=== PATIENT | male | born 1960 | race African-American/Black ===

== ENCOUNTER 2017-02-21 07:46 | Emergency (ER) | payer MEDICAID ==
[~2017-02-21] VITALS: Ht 177.8 cm; Wt 138.0 kg
[~2017-02-21 07:46] MED LIST: ALPR1TAB2 PO; BENA20TA3 PO; BUDE6HFA INH; CARI350T PO; HYDR2TAB4 PO; INSU100C3 SQ; LEVVL SQ; MORP30TA54 PO; OMEP20CA10 PO; OXYB5TAB11 PO; PHEN473S12 PO; SILV20CR15 TP; TRAM50TA73 PO; ZOLP5TAB8 PO
[2017-02-21] MEDS ORDERED: LIDOCAINE HCL 1% 20ML VIAL (Pyxis) INJ MC ONE (12:15)
[2017-02-21] MEDS ORDERED: KETOROLAC 60MG/2ML VIAL IM ONE (12:15)
[2017-02-21] MEDS ORDERED: CEFTRIAXONE SODIUM 1 G/VIAL IM ONE (12:15)
[2017-02-21 13:18] LABS: BASOPHILS % 0.8 % (0.0-2.0); EOSINOPHILS % 6.6 % (0.0-5.0); HEMATOCRIT. 44.8 % (42.0-52.0); HEMOGLOBIN. 15.1 g/dL (14.0-18.0); LYMPHOCYTES % 15.7 % (20.0-50.0); MEAN CORPUSCULAR HEMOGLOBIN 30.7 pg (28.0-32.0); MEAN CORPUSCULAR VOLUME 90.8 fL (80.0-94.0); MEAN PLATELET VOLUME 8.2 fl (7.4-10.4); NEUTROPHILS % 66.9 % (40.0-76.0); PLATELET 227 x1000/uL (130-400); RED BLOOD CELL COUNT 4.93 mill/uL (4.7-6.1); RED CELL DISTRIBUTION WIDTH 13.9 % (11.6-14.6)
[2017-02-21 13:25] LABS: CHLORIDE 97 mEq/L (98-107)
[2017-02-21 13:33] LABS: CARBON DIOXIDE 31 mEq/L (21-32); ETHANOL BLOOD < 10 mg/dL
[2017-02-21 13:57] LABS: CLARITY URINE CLEAR (CLEAR); COLOR URINE YELLOW (YELLOW); GLUCOSE URINE 3+ (NEGATIVE); KETONES URINE NEGATIVE (NEGATIVE); LEUKOCYTE ESTERASE URINE NEGATIVE (NEGATIVE); NITRITE URINE NEGATIVE (NEGATIVE); OCCULT BLOOD URINE NEGATIVE (NEGATIVE); PROTEIN URINE NEGATIVE (NEGATIVE)
[2017-02-21 14:09] LABS: *AMPHETAMINES SCREEN URINE NEGATIVE (NEGATIVE); *BARBITURATES SCREEN URINE NEGATIVE (NEGATIVE); *BENZODIAZEPINES SCREEN URINE NEGATIVE (NEGATIVE); *COCAINE SCREEN URINE PRESUMTIVE POSITIVE (NEGATIVE); CANNABINOID URINE SCREEN NEGATIVE (NEGATIVE); METHADONE URINE SCREEN NEGATIVE (NEGATIVE); OPIATES URINE SCREEN NEGATIVE (NEGATIVE); PHENCYCLIDINE URINE SCREEN NEGATIVE (NEGATIVE)
[2017-02-21] MEDS ORDERED: HYDROCODONE/ACETAMINOPHEN 5/325MG TABLET PO ONE (20:15)
[2017-02-21] MEDS ORDERED: DIPHENHYDRAMINE 50MG CAPSULE PO ONE (20:15)
[2017-02-21] MEDS ORDERED: SODIUM CHLORIDE 0.9% 1,000 ML IV ONE (23:26)
[2017-02-21] MEDS ORDERED: INSULIN LISPRO 100 UNITS/ML SUBCUT ONE (23:30)
[2017-02-22] MEDS ORDERED: SODIUM CHLORIDE 0.9% 500 ML IV ONE (02:07)
[2017-02-22] MEDS ORDERED: KETOROLAC 60MG/2ML VIAL IM ONE (08:45)
[2017-02-22 13:06] VITALS: BP 158/82
== END 2017-02-22 18:51 ==
LOC: ER 08:18
DX: F31.9 Bipolar disorder, unspecified (principal); J44.9 Chronic obstructive pulmonary disease, unspecified; I10 Essential (primary) hypertension; E11.9 Type 2 diabetes mellitus without complications; R45.851 Suicidal ideations; F17.200 Nicotine dependence, unspecified, uncomplicated; Z96.649 Presence of unspecified artificial hip joint; Z79.4 Long term (current) use of insulin
CPT/HCPCS: 36415; 80053; 80305; 80307; 80329; 81001; 82962; 85025; 96360; 96361; 96372; 99285; G0482; J0696; J1815; J1885; J3490; J7030; J7040; Z7610; Q0163

== ENCOUNTER 2017-06-17 07:40 | Emergency (ER) | payer MEDICAID ==
[~2017-06-17] VITALS: Ht 180.3 cm; Wt 139.0 kg
[~2017-06-17 07:40] MED LIST changes: +SILV20CR13 TP; -SILV20CR15 TP
[2017-06-17] MEDS ORDERED: IPRATROPIUM/ALBUTEROL 0.5-3(2.5)MG/3ML NEB HHN ONE (08:45)
[2017-06-17] MEDS ORDERED: PREDNISONE 20MG TABLET PO ONE (08:45)
[2017-06-17 09:54] LABS: BASOPHILS % 0.5 % (0.0-2.0); EOSINOPHILS % 6.7 % (0.0-5.0); HEMATOCRIT. 42.4 % (42.0-52.0); HEMOGLOBIN. 14.3 g/dL (14.0-18.0); LYMPHOCYTES % 10.4 % (20.0-50.0); MEAN CORPUSCULAR HEMOGLOBIN 31.2 pg (28.0-32.0); MEAN CORPUSCULAR VOLUME 92.9 fL (80.0-94.0); MONOCYTES % 7.4 % (2.0-8.0); PLATELET 166 x1000/uL (130-400); RED BLOOD CELL COUNT 4.57 mill/uL (4.7-6.1); RED CELL DISTRIBUTION WIDTH 12.7 % (11.6-14.6)
[2017-06-17 10:00] LABS: INR 1.1; PROTHROMBIN TIME 11.5 sec (9.4-11.6)
[2017-06-17 10:06] LABS: CARBON DIOXIDE 29 mEq/L (21-32); CHLORIDE 99 mEq/L (98-107); ETHANOL BLOOD < 10 mg/dL; TROPONIN I < 0.02 ng/mL (0.00-0.04)
[2017-06-17 10:26] LABS: CLARITY URINE CLEAR (CLEAR); COLOR URINE YELLOW (YELLOW); GLUCOSE URINE 3+ (NEGATIVE); KETONES URINE NEGATIVE (NEGATIVE); LEUKOCYTE ESTERASE URINE NEGATIVE (NEGATIVE); NITRITE URINE NEGATIVE (NEGATIVE); OCCULT BLOOD URINE NEGATIVE (NEGATIVE); PROTEIN URINE TRACE (NEGATIVE); SPECIFIC GRAVITY URINE 1.041 (1.005-1.030)
[2017-06-17 10:27] LABS: PLATELET ESTIMATE NORMAL
[2017-06-17 10:57] LABS: *AMPHETAMINES SCREEN URINE NEGATIVE (NEGATIVE); *BARBITURATES SCREEN URINE NEGATIVE (NEGATIVE); *BENZODIAZEPINES SCREEN URINE NEGATIVE (NEGATIVE); *COCAINE SCREEN URINE PRESUMTIVE POSITIVE (NEGATIVE); CANNABINOID URINE SCREEN NEGATIVE (NEGATIVE); METHADONE URINE SCREEN NEGATIVE (NEGATIVE); OPIATES URINE SCREEN NEGATIVE (NEGATIVE); PHENCYCLIDINE URINE SCREEN NEGATIVE (NEGATIVE)
[2017-06-17 14:36] VITALS: BP 136/72
[2017-07-17] MEDS ORDERED: SILV20CR13 TP (14:41)
== END 2017-06-17 14:55 | disposition home or self-care (01) ==
LOC: ER 07:50
DX: J44.1 Chronic obstructive pulmonary disease with (acute) exacerbation (principal); I10 Essential (primary) hypertension; F20.9 Schizophrenia, unspecified; M19.90 Unspecified osteoarthritis, unspecified site; E11.42 Type 2 diabetes mellitus with diabetic polyneuropathy; Z79.4 Long term (current) use of insulin; Z59.0 Homelessness; Z96.649 Presence of unspecified artificial hip joint
CPT/HCPCS: 36415; 80053; 80305; 80307; 80329; 81001; 83605; 83880; 84484; 85025; 85610; 87040; 93005; 99285; G0482; J7030; J7512; Z7610

== ENCOUNTER 2018-01-22 08:42 | Emergency (ER) | payer MEDICAID ==
[~2018-01-22] VITALS: Ht 175.3 cm; Wt 130.0 kg
[~2018-01-22 08:42] MED LIST changes: -TRAM50TA73 PO; +TRAM50TA94 PO
[2018-01-22 14:20] LABS: *AMPHETAMINES SCREEN URINE PRESUMTIVE POSITIVE (NEGATIVE); *BARBITURATES SCREEN URINE NEGATIVE (NEGATIVE); *BENZODIAZEPINES SCREEN URINE NEGATIVE (NEGATIVE); *COCAINE SCREEN URINE PRESUMTIVE POSITIVE (NEGATIVE); METHADONE URINE SCREEN NEGATIVE (NEGATIVE); OPIATES URINE SCREEN NEGATIVE (NEGATIVE)
[2018-01-22 14:21] LABS: CANNABINOID URINE SCREEN NEGATIVE (NEGATIVE); PHENCYCLIDINE URINE SCREEN NEGATIVE (NEGATIVE)
[2018-01-22 14:45] LABS: BASOPHILS % 0.4 % (0.0-2.0); EOSINOPHILS % 7.9 % (0.0-5.0); HEMATOCRIT. 43.3 % (42.0-52.0); HEMOGLOBIN. 14.7 g/dL (14.0-18.0); LYMPHOCYTES % 19.8 % (20.0-50.0); MEAN CORPUSCULAR HEMOGLOBIN 31.3 pg (28.0-32.0); MEAN CORPUSCULAR VOLUME 92.6 fL (80.0-94.0); MEAN PLATELET VOLUME 8.2 fl (7.4-10.4); MONOCYTES % 10.4 % (2.0-8.0); NEUTROPHILS % 61.5 % (40.0-76.0); PLATELET 227 x1000/uL (130-400); RED BLOOD CELL COUNT 4.68 mill/uL (4.7-6.1); RED CELL DISTRIBUTION WIDTH 15.3 % (11.6-14.6)
[2018-01-22 14:47] LABS: CHLORIDE 99 mEq/L (98-107)
[2018-01-22 14:50] LABS: ETHANOL BLOOD < 10 mg/dL
[2018-01-23 17:11] VITALS: BP 136/93
== END 2018-01-23 17:30 | disposition home or self-care (01) ==
LOC: ER 09:21
DX: S02.2XXA Fracture of nasal bones, initial encounter for closed fracture (principal); J44.9 Chronic obstructive pulmonary disease, unspecified; I10 Essential (primary) hypertension; F20.9 Schizophrenia, unspecified; E11.9 Type 2 diabetes mellitus without complications; Z96.649 Presence of unspecified artificial hip joint; Z79.4 Long term (current) use of insulin; Y09 Assault by unspecified means; Y93.89 Activity, other specified; Y92.89 Other specified places as the place of occurrence of the external cause; Y99.9 Unspecified external cause status
CPT/HCPCS: 36415; 70160; 70450; 80048; 80305; 85025; 99285; G0482; Z7610

== ENCOUNTER 2018-02-03 20:08 | Emergency (ER) | payer MEDICAID ==
[~2018-02-03] VITALS: Ht 172.7 cm; Wt 118.0 kg
[2018-02-03 22:38] LABS: BASOPHILS % 0.6 % (0.0-2.0); EOSINOPHILS % 5.1 % (0.0-5.0); HEMATOCRIT. 45.5 % (42.0-52.0); HEMOGLOBIN. 15.3 g/dL (14.0-18.0); LYMPHOCYTES % 18.8 % (20.0-50.0); MEAN CORPUSCULAR HEMOGLOBIN 31.1 pg (28.0-32.0); MEAN CORPUSCULAR VOLUME 92.3 fL (80.0-94.0); MEAN PLATELET VOLUME 7.7 fl (7.4-10.4); MONOCYTES % 7.7 % (2.0-8.0); NEUTROPHILS % 67.8 % (40.0-76.0); PLATELET 338 x1000/uL (130-400); RED BLOOD CELL COUNT 4.93 mill/uL (4.7-6.1); RED CELL DISTRIBUTION WIDTH 14.7 % (11.6-14.6)
[2018-02-03 22:46] LABS: CHLORIDE 100 mEq/L (98-107)
[2018-02-03 22:54] LABS: INR 1.1; PROTHROMBIN TIME 11.9 sec (9.4-11.6)
[2018-02-04 02:00] VITALS: BP 110/59
== END 2018-02-04 02:57 | disposition home or self-care (01) ==
LOC: ER 21:04
DX: S02.2XXA Fracture of nasal bones, initial encounter for closed fracture (principal); I10 Essential (primary) hypertension; J44.9 Chronic obstructive pulmonary disease, unspecified; M19.90 Unspecified osteoarthritis, unspecified site; E11.9 Type 2 diabetes mellitus without complications; F31.9 Bipolar disorder, unspecified; Z79.4 Long term (current) use of insulin; Z86.19 Personal history of other infectious and parasitic diseases; Y04.0XXA Assault by unarmed brawl or fight, initial encounter; Y93.89 Activity, other specified; Y92.488 Other paved roadways as the place of occurrence of the external cause
CPT/HCPCS: 36415; 70160; 80048; 85025; 85610; 85730; 86850; 86900; 86901; 99285; Z7610

== ENCOUNTER 2018-02-04 03:04 | Emergency (ER) | payer MEDICAID ==
[~2018-02-04] VITALS: Ht 175.3 cm; Wt 130.0 kg
[2018-02-04] MEDS ORDERED: ACETAMINOPHEN 325MG TABLET PO ONE (06:45)
[2018-02-04] MEDS ORDERED: IBUPROFEN 600MG TABLET PO ONE (08:30)
[2018-02-04 13:47] VITALS: BP 140/77
== END 2018-02-04 13:52 | disposition home or self-care (01) ==
LOC: ER 03:04
DX: J34.89 Other specified disorders of nose and nasal sinuses (principal); Z59.0 Homelessness; I11.0 Hypertensive heart disease with heart failure; I50.9 Heart failure, unspecified; E11.9 Type 2 diabetes mellitus without complications; J44.9 Chronic obstructive pulmonary disease, unspecified; F17.210 Nicotine dependence, cigarettes, uncomplicated; Z79.4 Long term (current) use of insulin; Z96.649 Presence of unspecified artificial hip joint; Z79.899 Other long term (current) drug therapy
CPT/HCPCS: 99283

== ENCOUNTER 2018-10-26 23:23 | Emergency (ER) | payer MEDICAID ==
[~2018-10-26] VITALS: Ht 165.1 cm; Wt 118.0 kg
[~2018-10-26 23:23] MED LIST changes: -ALPR1TAB2 PO; +AMLO2.5T45 PO; -BENA20TA3 PO; -BUDE6HFA INH; -CARI350T PO; -HYDR2TAB4 PO; +INSLIS SUBCUT; -INSU100C3 SQ; +LANTUSUD SUBCUT; -LEVVL SQ; -MORP30TA54 PO; -OMEP20CA10 PO; -OXYB5TAB11 PO; -PHEN473S12 PO; -SILV20CR13 TP; +TAMS-11 PO; -TRAM50TA94 PO; +TRAZ-212 PO; -ZOLP5TAB8 PO
[2018-10-27] MEDS ORDERED: HYDROCODONE/ACETAMINOPHEN 5/325MG TABLET PO ONE (09:30)
[2018-10-27] MEDS ORDERED: ACETAMINOPHEN 325MG TABLET PO ONE (12:00)
[2018-10-27 13:00] VITALS: BP 141/63
== END 2018-10-27 13:00 | disposition home or self-care (01) ==
LOC: ER 23:23
DX: S70.211A Abrasion, right hip, initial encounter (principal); L89.212 Pressure ulcer of right hip, stage 2; J44.9 Chronic obstructive pulmonary disease, unspecified; E11.9 Type 2 diabetes mellitus without complications; I10 Essential (primary) hypertension; F17.210 Nicotine dependence, cigarettes, uncomplicated; Z79.4 Long term (current) use of insulin; Z86.14 Personal history of Methicillin resistant Staphylococcus aureus infection; Z96.649 Presence of unspecified artificial hip joint; Z99.3 Dependence on wheelchair; Z59.0 Homelessness; Z86.19 Personal history of other infectious and parasitic diseases; Z87.820 Personal history of traumatic brain injury; V03.19XA Pedestrian with other conveyance injured in collision with car, pick-up truck or van in traffic accident, initial encounter; Y93.89 Activity, other specified; Y92.488 Other paved roadways as the place of occurrence of the external cause
CPT/HCPCS: 82962; 99283

== ENCOUNTER 2018-10-27 14:20 | Inpatient (IN) | payer MEDICAID ==
[~2018-10-27] VITALS: Ht 175.3 cm; Wt 108.9 kg
[2018-10-28 04:29] LABS: BASOPHILS % 0.6 % (0.0-2.0); EOSINOPHILS % 5.8 % (0.0-5.0); HEMATOCRIT. 38.6 % (42.0-52.0); LYMPHOCYTES % 22.6 % (20.0-50.0); MEAN CORPUSCULAR VOLUME 92.1 fL (80.0-94.0); MEAN PLATELET VOLUME 8.5 fl (7.4-10.4); MONOCYTES % 10.3 % (2.0-8.0); NEUTROPHILS % 60.7 % (40.0-76.0); PLATELET 239 x1000/uL (130-400); RED BLOOD CELL COUNT 4.19 mill/uL (4.7-6.1); RED CELL DISTRIBUTION WIDTH 15.1 % (11.6-14.6)
[2018-10-28 04:30] LABS: CHLORIDE 100 mEq/L (98-107)
[2018-10-28 04:33] LABS: CLARITY URINE CLEAR (CLEAR); COLOR URINE YELLOW (YELLOW); KETONES URINE NEGATIVE (NEGATIVE); LEUKOCYTE ESTERASE URINE NEGATIVE (NEGATIVE); NITRITE URINE POSITIVE (NEGATIVE); OCCULT BLOOD URINE NEGATIVE (NEGATIVE); PROTEIN URINE 1+ (NEGATIVE); SPECIFIC GRAVITY URINE 1.034 (1.005-1.030); UROBILINOGEN URINE 0.2 E.U./dL (0.2-1.0)
[2018-10-28 04:34] LABS: ETHANOL BLOOD < 10 mg/dL
[2018-10-28 04:51] LABS: *AMPHETAMINES SCREEN URINE NEGATIVE (NEGATIVE); *BARBITURATES SCREEN URINE NEGATIVE (NEGATIVE); *BENZODIAZEPINES SCREEN URINE NEGATIVE (NEGATIVE); *COCAINE SCREEN URINE PRESUMTIVE POSITIVE (NEGATIVE); CANNABINOID URINE SCREEN NEGATIVE (NEGATIVE); METHADONE URINE SCREEN NEGATIVE (NEGATIVE); OPIATES URINE SCREEN NEGATIVE (NEGATIVE); PHENCYCLIDINE URINE SCREEN NEGATIVE (NEGATIVE)
[2018-10-28] MEDS ORDERED: SODIUM CHLORIDE 0.9% 1,000 ML IV ONE (05:30)
[2018-10-28] MEDS ORDERED: INSULIN REGULAR (HUMULIN R) 300UNITS/3ML SUBCUT ONE (05:45)
[2018-10-28] MEDS ORDERED: CEFTRIAXONE 1 G PREMIX 50 ML IV ONE (05:45)
[2018-10-28] MEDS ORDERED: MORPHINE SULFATE 4 MG/ML CPJ (NOT FOR IM USE) IV ONE (06:15)
[2018-10-28] MEDS ORDERED: ONDANSETRON 4MG ODT PO ONE (06:15)
[2018-10-28] MEDS ORDERED: ACETAMINOPHEN 325MG TABLET PO ONE (09:15)
[2018-10-28 12:00] VITALS: BP 132/50
[2018-10-28] MEDS ORDERED: ONDANSETRON HCL 4MG/2ML INJ IV PRN (12:15)
[2018-10-28 12:30] VITALS: BP 132/50
[2018-10-28 12:44] LABS: PHOSPHORUS 3.2 mg/dL (2.5-4.9)
[2018-10-28] MEDS ORDERED: IPRATROPIUM/ALBUTEROL 0.5-3(2.5)MG/3ML NEB INH PRN (13:00)
[2018-10-28] MEDS: HYDROCODONE/ACETAMINOPHEN 5/325MG TABLET PO PRN (15:22)
[2018-10-28] MEDS: TAMSULOSIN HCL 0.4MG SR CAPSULE PO SCH (15:29)
[2018-10-28] MEDS: BENAZEPRIL 10MG TABLET PO SCH (15:29)
[2018-10-28 16:00] VITALS: BP 122/49
[2018-10-28] MEDS ORDERED: PROMETHAZINE/DEXTROMETHORPHAN 6.25-15MG/5ML BOTTLE 120ML PO PRN (16:00)
[2018-10-28 16:15] LABS: CREATINE KINASE 132 IU/L (39-308)
[2018-10-28 20:00] VITALS: BP 134/66
[2018-10-28] MEDS ORDERED: DEXTROSE 50% WATER 50ML SYRINGE IV PRN (20:45)
[2018-10-28] MEDS: BLOOD SUGAR DIAGNOSTIC STRIP TEST SCH (21:00)
[2018-10-28] MEDS: MORPHINE SULFATE 4 MG/ML CPJ (NOT FOR IM USE) IV PRN (21:23)
[2018-10-28] MEDS: INSULIN LISPRO 100 UNITS/ML SUBCUT SCH (21:35)
[2018-10-28] MEDS: BACLOFEN 10MG TABLET PO SCH (23:06)
[2018-10-28] MEDS: INSULIN GLARGINE UD 100 UNITS/ML SYR SUBCUT SCH (23:11)
[2018-10-29] VITALS: BP 116/59
[2018-10-29 00:45] LABS: CREATINE KINASE 122 IU/L (39-308)
[2018-10-29] MEDS: MORPHINE SULFATE 4 MG/ML CPJ (NOT FOR IM USE) IV PRN ×4 (03:41→23:50)
[2018-10-29 04:00] VITALS: BP 121/50
[2018-10-29] MEDS ORDERED: CEFTRIAXONE 1 G PREMIX 50 ML IV SCH (06:00)
[2018-10-29 07:05] LABS: BASOPHILS % 0.5 % (0.0-2.0); EOSINOPHILS % 3.8 % (0.0-5.0); HEMATOCRIT. 37.9 % (42.0-52.0); HEMOGLOBIN. 12.7 g/dL (14.0-18.0); LYMPHOCYTES % 23.6 % (20.0-50.0); MEAN CORPUSCULAR HEMOGLOBIN 31.1 pg (28.0-32.0); MEAN CORPUSCULAR VOLUME 92.7 fL (80.0-94.0); MEAN PLATELET VOLUME 8.4 fl (7.4-10.4); MONOCYTES % 11.6 % (2.0-8.0); NEUTROPHILS % 60.5 % (40.0-76.0); PLATELET 254 x1000/uL (130-400); RED BLOOD CELL COUNT 4.09 mill/uL (4.7-6.1)
[2018-10-29 07:20] LABS: CHLORIDE 100 mEq/L (98-107)
[2018-10-29] MEDS: BLOOD SUGAR DIAGNOSTIC STRIP TEST SCH ×4 (07:20→23:46)
[2018-10-29 07:32] LABS: LDL CHOLESTEROL 83 mg/dL (5-100)
[2018-10-29 07:33] LABS: HDL CHOLESTEROL 37 mg/dL (40-59)
[2018-10-29] MEDS: BACLOFEN 10MG TABLET PO SCH ×3 (07:59→23:49)
[2018-10-29 08:00] VITALS: BP 131/67
[2018-10-29] MEDS: INSULIN LISPRO 100 UNITS/ML SUBCUT SCH ×3 (08:30→18:10)
[2018-10-29] MEDS: BENAZEPRIL 10MG TABLET PO SCH (09:45)
[2018-10-29] MEDS: TAMSULOSIN HCL 0.4MG SR CAPSULE PO SCH (09:45)
[2018-10-29] MEDS: INSULIN GLARGINE UD 100 UNITS/ML SYR SUBCUT SCH (09:56)
[2018-10-29 12:00] VITALS: BP 117/53
[2018-10-29 16:00] VITALS: BP_SYST 127; BP_DIAS 72; BP_DIAS 79
[2018-10-29 20:00] VITALS: BP 121/56
[2018-10-29] MEDS: DIPHENHYDRAMINE 50MG/ML VIAL IV PRN (23:49)
[2018-10-29] MEDS: NYSTATIN 100,000 UNITS/GM CREAM 15GM TOP SCH (23:51)
[2018-10-30] VITALS: BP 129/72
[2018-10-30] MEDS: INSULIN LISPRO 100 UNITS/ML SUBCUT SCH ×5 (00:11→21:51)
[2018-10-30 04:00] VITALS: BP 121/53
[2018-10-30] MEDS: BACLOFEN 10MG TABLET PO SCH ×3 (06:23→21:44)
[2018-10-30] MEDS: HYDROCODONE/ACETAMINOPHEN 5/325MG TABLET PO PRN (06:24)
[2018-10-30] MEDS: BLOOD SUGAR DIAGNOSTIC STRIP TEST SCH ×4 (07:20→21:33)
[2018-10-30 07:59] VITALS: BP 102/54
[2018-10-30] MEDS: CEFTRIAXONE 1 G PREMIX 50 ML IV SCH (08:45)
[2018-10-30] MEDS: TAMSULOSIN HCL 0.4MG SR CAPSULE PO SCH (08:45)
[2018-10-30] MEDS: NYSTATIN 100,000 UNITS/GM CREAM 15GM TOP SCH ×2 (08:46→21:26)
[2018-10-30] MEDS: BENAZEPRIL 10MG TABLET PO SCH (08:49)
[2018-10-30] MEDS: MORPHINE SULFATE 4 MG/ML CPJ (NOT FOR IM USE) IV PRN ×4 (09:28→21:45)
[2018-10-30] MEDS: INSULIN GLARGINE UD 100 UNITS/ML SYR SUBCUT SCH ×3 (09:33→21:32)
[2018-10-30 10:01] LABS: BASOPHILS % 0.5 % (0.0-2.0); EOSINOPHILS % 5.5 % (0.0-5.0); HEMATOCRIT. 38.6 % (42.0-52.0); LYMPHOCYTES % 23.5 % (20.0-50.0); MEAN CORPUSCULAR HEMOGLOBIN 31.1 pg (28.0-32.0); MEAN CORPUSCULAR VOLUME 92.4 fL (80.0-94.0); MEAN PLATELET VOLUME 7.8 fl (7.4-10.4); MONOCYTES % 14.2 % (2.0-8.0); NEUTROPHILS % 56.3 % (40.0-76.0); PLATELET 257 x1000/uL (130-400); RED BLOOD CELL COUNT 4.17 mill/uL (4.7-6.1)
[2018-10-30 10:14] LABS: CHLORIDE 99 mEq/L (98-107)
[2018-10-30 12:00] VITALS: BP 120/81
[2018-10-30 16:00] VITALS: BP 114/44
[2018-10-30] MEDS: DIPHENHYDRAMINE 50MG/ML VIAL IV PRN ×2 (17:49→22:46)
[2018-10-30 20:00] VITALS: BP 121/51
[2018-10-30] MEDS: ENOXAPARIN 30MG/0.3ML SYR SUBCUT SCH (21:26)
[2018-10-30] MEDS: ZOLPIDEM TARTRATE 5MG TABLET PO PRN (21:44)
[2018-10-31] VITALS (8 sets, daily range): BP systolic 110–155; BP diastolic 50–74
[2018-10-31] MEDS: MORPHINE SULFATE 4 MG/ML CPJ (NOT FOR IM USE) IV PRN ×2 (03:48→10:12)
[2018-10-31] MEDS: GUAIFENESIN 200MG/10ML SUGAR FREE UDC PO PRN ×3 (04:02→18:30)
[2018-10-31] MEDS: CEFTRIAXONE 1 G PREMIX 50 ML IV SCH (06:14)
[2018-10-31] MEDS: ENOXAPARIN 30MG/0.3ML SYR SUBCUT SCH ×2 (06:14→17:36)
[2018-10-31] MEDS: BACLOFEN 10MG TABLET PO SCH ×3 (06:14→21:02)
[2018-10-31] MEDS: BLOOD SUGAR DIAGNOSTIC STRIP TEST SCH ×4 (06:36→21:02)
[2018-10-31] MEDS: INSULIN LISPRO 100 UNITS/ML SUBCUT SCH ×4 (06:51→21:16)
[2018-10-31] MEDS: BENAZEPRIL 10MG TABLET PO SCH (08:36)
[2018-10-31] MEDS: TAMSULOSIN HCL 0.4MG SR CAPSULE PO SCH (08:37)
[2018-10-31] MEDS: NYSTATIN 100,000 UNITS/GM CREAM 15GM TOP SCH ×3 (08:37→21:13)
[2018-10-31 08:53] LABS: HEMOGLOBIN. 13.1 g/dL (14.0-18.0); MEAN CORPUSCULAR VOLUME 92.5 fL (80.0-94.0); MEAN PLATELET VOLUME 7.7 fl (7.4-10.4); PLATELET 283 x1000/uL (130-400); RED BLOOD CELL COUNT 4.22 mill/uL (4.7-6.1); RED CELL DISTRIBUTION WIDTH 14.6 % (11.6-14.6)
[2018-10-31] MEDS ORDERED: INFLUENZA VIRUS VACCINE(AFLURIA) 0.5ML SYR IM ONE (09:00)
[2018-10-31] MEDS ORDERED: PNEUMOCOCCAL 23-VAL P-SAC VAC 0.5 ML IM ONE (09:00)
[2018-10-31 09:29] LABS: CHLORIDE 101 mEq/L (98-107)
[2018-10-31] MEDS: INSULIN GLARGINE UD 100 UNITS/ML SYR SUBCUT SCH ×2 (10:21→21:17)
[2018-10-31 11:11] LABS: PLATELET ESTIMATE NORMAL
[2018-10-31] MEDS: HYDROCODONE/ACETAMINOPHEN 5/325MG TABLET PO PRN ×2 (14:31→20:47)
[2018-10-31] MEDS ORDERED: LEVO750T21 MT (15:54)
[2018-10-31] MEDS ORDERED: NYST15OI TP (15:54)
[2018-10-31] MEDS: DIPHENHYDRAMINE 50MG/ML VIAL IV PRN (18:30)
[2018-10-31] MEDS: ZOLPIDEM TARTRATE 5MG TABLET PO PRN (20:46)
[2018-10-31] MEDS: MULTIVITAMINS,THER W-MINERALS TABLET PO SCH (21:01)
[2018-10-31] MEDS: ZINC SULFATE 220 MG ( 50 ) CAPSULE PO SCH (21:02)
[2018-10-31] MEDS: ASCORBIC ACID 250 MG TABLET PO SCH (21:13)
[2018-11-01 04:00] VITALS: BP 124/68
[2018-11-01] MEDS: MORPHINE SULFATE 4 MG/ML CPJ (NOT FOR IM USE) IV PRN ×2 (05:18→13:40)
[2018-11-01] MEDS: ENOXAPARIN 30MG/0.3ML SYR SUBCUT SCH ×2 (05:19→17:10)
[2018-11-01] MEDS: BACLOFEN 10MG TABLET PO SCH ×3 (05:19→22:23)
[2018-11-01] MEDS: CEFTRIAXONE 1 G PREMIX 50 ML IV SCH ×2 (06:31→10:00)
[2018-11-01] MEDS: BLOOD SUGAR DIAGNOSTIC STRIP TEST SCH ×4 (06:39→21:00)
[2018-11-01] MEDS: INSULIN LISPRO 100 UNITS/ML SUBCUT SCH ×4 (07:50→22:46)
[2018-11-01] MEDS: ZINC SULFATE 220 MG ( 50 ) CAPSULE PO SCH (08:58)
[2018-11-01] MEDS: ASCORBIC ACID 250 MG TABLET PO SCH ×2 (08:58→22:23)
[2018-11-01] MEDS: MULTIVITAMINS,THER W-MINERALS TABLET PO SCH (08:58)
[2018-11-01] MEDS: BENAZEPRIL 10MG TABLET PO SCH (08:58)
[2018-11-01] MEDS: NYSTATIN 100,000 UNITS/GM CREAM 15GM TOP SCH ×4 (08:58→22:26)
[2018-11-01] MEDS: TAMSULOSIN HCL 0.4MG SR CAPSULE PO SCH (08:58)
[2018-11-01] MEDS: INSULIN GLARGINE UD 100 UNITS/ML SYR SUBCUT SCH ×2 (10:35→22:34)
[2018-11-01 12:00] VITALS: BP 134/58
[2018-11-01 17:57] VITALS: BP 128/64
[2018-11-01 20:00] VITALS: BP 128/68
[2018-11-01] MEDS: HYDROCODONE/ACETAMINOPHEN 5/325MG TABLET PO PRN (22:24)
[2018-11-01] MEDS: ZOLPIDEM TARTRATE 5MG TABLET PO PRN (22:43)
[2018-11-02] VITALS: BP 121/63
[2018-11-02 04:00] VITALS: BP 103/63
[2018-11-02] MEDS: ENOXAPARIN 30MG/0.3ML SYR SUBCUT SCH ×2 (05:58→17:17)
[2018-11-02] MEDS: CEFTRIAXONE 1 G PREMIX 50 ML IV SCH (05:58)
[2018-11-02] MEDS: BACLOFEN 10MG TABLET PO SCH ×3 (05:59→22:44)
[2018-11-02] MEDS: MORPHINE SULFATE 4 MG/ML CPJ (NOT FOR IM USE) IV PRN (05:59)
[2018-11-02] MEDS: INSULIN LISPRO 100 UNITS/ML SUBCUT SCH ×4 (07:47→23:01)
[2018-11-02] MEDS: BLOOD SUGAR DIAGNOSTIC STRIP TEST SCH ×4 (07:47→21:00)
[2018-11-02 08:26] VITALS: BP 132/77
[2018-11-02] MEDS: ASCORBIC ACID 250 MG TABLET PO SCH ×2 (09:23→22:44)
[2018-11-02] MEDS: ZINC SULFATE 220 MG ( 50 ) CAPSULE PO SCH (09:23)
[2018-11-02] MEDS: BENAZEPRIL 10MG TABLET PO SCH (09:23)
[2018-11-02] MEDS: TAMSULOSIN HCL 0.4MG SR CAPSULE PO SCH (09:23)
[2018-11-02] MEDS: NYSTATIN 100,000 UNITS/GM CREAM 15GM TOP SCH ×4 (09:23→22:54)
[2018-11-02] MEDS: MULTIVITAMINS,THER W-MINERALS TABLET PO SCH (09:23)
[2018-11-02] MEDS: INSULIN GLARGINE UD 100 UNITS/ML SYR SUBCUT SCH ×2 (09:34→22:53)
[2018-11-02 11:49] VITALS: BP 117/54
[2018-11-02] MEDS: CEPHALEXIN 250MG CAPSULE PO SCH ×2 (11:52→22:43)
[2018-11-02 16:18] VITALS: BP 125/72
[2018-11-02 20:00] VITALS: BP 125/63
[2018-11-02] MEDS: ACETAMINOPHEN 325MG TABLET PO PRN (22:43)
[2018-11-02] MEDS: DIPHENHYDRAMINE 25MG CAPSULE PO PRN (22:44)
[2018-11-02] MEDS: ZOLPIDEM TARTRATE 5MG TABLET PO PRN (23:05)
[2018-11-03] VITALS: BP 112/52
[2018-11-03 04:00] VITALS: BP 110/54
[2018-11-03] MEDS: ENOXAPARIN 30MG/0.3ML SYR SUBCUT SCH ×2 (05:40→17:29)
[2018-11-03] MEDS: DIPHENHYDRAMINE 25MG CAPSULE PO PRN ×2 (05:40→20:00)
[2018-11-03] MEDS: BACLOFEN 10MG TABLET PO SCH ×3 (05:40→21:19)
[2018-11-03] MEDS: ACETAMINOPHEN 325MG TABLET PO PRN (05:41)
[2018-11-03 08:00] VITALS: BP 164/72
[2018-11-03] MEDS: BLOOD SUGAR DIAGNOSTIC STRIP TEST SCH ×4 (08:09→20:04)
[2018-11-03] MEDS: MULTIVITAMINS,THER W-MINERALS TABLET PO SCH (08:41)
[2018-11-03] MEDS: CEPHALEXIN 250MG CAPSULE PO SCH ×2 (08:41→20:00)
[2018-11-03] MEDS: BENAZEPRIL 10MG TABLET PO SCH (08:42)
[2018-11-03] MEDS: ASCORBIC ACID 250 MG TABLET PO SCH ×2 (08:42→20:00)
[2018-11-03] MEDS: TAMSULOSIN HCL 0.4MG SR CAPSULE PO SCH (08:42)
[2018-11-03] MEDS: ZINC SULFATE 220 MG ( 50 ) CAPSULE PO SCH (08:42)
[2018-11-03] MEDS: NYSTATIN 100,000 UNITS/GM CREAM 15GM TOP SCH ×4 (08:43→20:04)
[2018-11-03] MEDS: INSULIN LISPRO 100 UNITS/ML SUBCUT SCH ×4 (08:51→20:08)
[2018-11-03] MEDS: INSULIN GLARGINE UD 100 UNITS/ML SYR SUBCUT SCH ×2 (11:24→21:19)
[2018-11-03 12:00] VITALS: BP 137/71
[2018-11-03 16:00] VITALS: BP 139/77
[2018-11-03 20:00] VITALS: BP 113/58
[2018-11-03] MEDS: ZOLPIDEM TARTRATE 5MG TABLET PO PRN (20:12)
[2018-11-04] VITALS: BP 116/69
[2018-11-04 04:00] VITALS: BP 128/64
[2018-11-04] MEDS: BACLOFEN 10MG TABLET PO SCH ×3 (06:21→21:28)
[2018-11-04] MEDS: ENOXAPARIN 30MG/0.3ML SYR SUBCUT SCH ×2 (06:22→17:44)
[2018-11-04] MEDS: BLOOD SUGAR DIAGNOSTIC STRIP TEST SCH ×4 (06:24→20:14)
[2018-11-04 08:00] VITALS: BP 117/79
[2018-11-04] MEDS: ASCORBIC ACID 250 MG TABLET PO SCH ×2 (08:48→20:14)
[2018-11-04] MEDS: CEPHALEXIN 250MG CAPSULE PO SCH ×2 (08:48→20:13)
[2018-11-04] MEDS: ZINC SULFATE 220 MG ( 50 ) CAPSULE PO SCH (08:48)
[2018-11-04] MEDS: TAMSULOSIN HCL 0.4MG SR CAPSULE PO SCH (08:48)
[2018-11-04] MEDS: INSULIN LISPRO 100 UNITS/ML SUBCUT SCH ×4 (08:50→20:22)
[2018-11-04] MEDS: BENAZEPRIL 10MG TABLET PO SCH (09:00)
[2018-11-04] MEDS: NYSTATIN 100,000 UNITS/GM CREAM 15GM TOP SCH ×4 (09:20→20:14)
[2018-11-04] MEDS: MULTIVITAMINS,THER W-MINERALS TABLET PO SCH (09:20)
[2018-11-04] MEDS: INSULIN GLARGINE UD 100 UNITS/ML SYR SUBCUT SCH ×2 (09:46→21:28)
[2018-11-04 11:59] VITALS: BP 138/73
[2018-11-04 15:49] VITALS: BP 142/72
[2018-11-04 20:00] VITALS: BP 103/57
[2018-11-04] MEDS: DIPHENHYDRAMINE 25MG CAPSULE PO PRN (20:14)
[2018-11-05] VITALS (7 sets, daily range): BP systolic 116–155; BP diastolic 50–76
[2018-11-05] MEDS: BACLOFEN 10MG TABLET PO SCH ×3 (06:20→22:35)
[2018-11-05] MEDS: ENOXAPARIN 30MG/0.3ML SYR SUBCUT SCH ×2 (06:21→18:09)
[2018-11-05] MEDS: BLOOD SUGAR DIAGNOSTIC STRIP TEST SCH ×4 (06:21→21:00)
[2018-11-05] MEDS: ZINC SULFATE 220 MG ( 50 ) CAPSULE PO SCH (08:33)
[2018-11-05] MEDS: CEPHALEXIN 250MG CAPSULE PO SCH ×2 (08:33→22:35)
[2018-11-05] MEDS: INSULIN LISPRO 100 UNITS/ML SUBCUT SCH ×4 (08:33→22:50)
[2018-11-05] MEDS: TAMSULOSIN HCL 0.4MG SR CAPSULE PO SCH (08:33)
[2018-11-05] MEDS: ASCORBIC ACID 250 MG TABLET PO SCH ×2 (08:34→22:35)
[2018-11-05] MEDS: BENAZEPRIL 10MG TABLET PO SCH (08:34)
[2018-11-05] MEDS: NYSTATIN 100,000 UNITS/GM CREAM 15GM TOP SCH ×4 (08:34→22:36)
[2018-11-05] MEDS: MULTIVITAMINS,THER W-MINERALS TABLET PO SCH (09:16)
[2018-11-05] MEDS: DIPHENHYDRAMINE 25MG CAPSULE PO PRN ×2 (09:17→22:35)
[2018-11-05] MEDS: INSULIN GLARGINE UD 100 UNITS/ML SYR SUBCUT SCH ×2 (09:58→22:44)
[2018-11-05] MEDS: ACETAMINOPHEN 325MG TABLET PO PRN (22:35)
[2018-11-06 03:47] VITALS: BP 126/62
[2018-11-06] MEDS: BACLOFEN 10MG TABLET PO SCH ×3 (07:12→21:43)
[2018-11-06] MEDS: DIPHENHYDRAMINE 25MG CAPSULE PO PRN ×2 (07:12→21:43)
[2018-11-06] MEDS: ENOXAPARIN 30MG/0.3ML SYR SUBCUT SCH ×2 (07:12→17:14)
[2018-11-06] MEDS: ACETAMINOPHEN 325MG TABLET PO PRN ×2 (07:12→21:43)
[2018-11-06] MEDS: BLOOD SUGAR DIAGNOSTIC STRIP TEST SCH ×4 (07:20→21:59)
[2018-11-06 08:00] VITALS: BP 133/76
[2018-11-06] MEDS: INSULIN LISPRO 100 UNITS/ML SUBCUT SCH ×4 (08:52→21:59)
[2018-11-06] MEDS: TAMSULOSIN HCL 0.4MG SR CAPSULE PO SCH (08:53)
[2018-11-06] MEDS: BENAZEPRIL 10MG TABLET PO SCH (08:53)
[2018-11-06] MEDS: ASCORBIC ACID 250 MG TABLET PO SCH ×2 (08:53→21:43)
[2018-11-06] MEDS: ZINC SULFATE 220 MG ( 50 ) CAPSULE PO SCH (08:53)
[2018-11-06] MEDS: MULTIVITAMINS,THER W-MINERALS TABLET PO SCH (08:53)
[2018-11-06] MEDS: NYSTATIN 100,000 UNITS/GM CREAM 15GM TOP SCH ×4 (08:54→21:44)
[2018-11-06] MEDS: INSULIN GLARGINE UD 100 UNITS/ML SYR SUBCUT SCH ×2 (09:21→21:21)
[2018-11-06] MEDS: CEPHALEXIN 250MG CAPSULE PO SCH ×2 (09:21→21:44)
[2018-11-06 12:00] VITALS: BP 140/85
[2018-11-06 16:00] VITALS: BP 118/64
[2018-11-06 20:00] VITALS: BP 120/66
[2018-11-07] VITALS: BP 118/66
[2018-11-07 04:00] VITALS: BP 118/76
[2018-11-07] MEDS: BACLOFEN 10MG TABLET PO SCH ×2 (06:52→14:00)
[2018-11-07] MEDS: DIPHENHYDRAMINE 25MG CAPSULE PO PRN (06:52)
[2018-11-07] MEDS: ENOXAPARIN 30MG/0.3ML SYR SUBCUT SCH (06:53)
[2018-11-07 08:00] VITALS: BP 109/48
[2018-11-07] MEDS: BLOOD SUGAR DIAGNOSTIC STRIP TEST SCH ×3 (08:15→17:20)
[2018-11-07] MEDS: TAMSULOSIN HCL 0.4MG SR CAPSULE PO SCH (08:16)
[2018-11-07] MEDS: ASCORBIC ACID 250 MG TABLET PO SCH (08:16)
[2018-11-07] MEDS: CEPHALEXIN 250MG CAPSULE PO SCH (08:16)
[2018-11-07] MEDS: ZINC SULFATE 220 MG ( 50 ) CAPSULE PO SCH (08:16)
[2018-11-07] MEDS: NYSTATIN 100,000 UNITS/GM CREAM 15GM TOP SCH ×2 (08:17)
[2018-11-07] MEDS: MULTIVITAMINS,THER W-MINERALS TABLET PO SCH (08:17)
[2018-11-07] MEDS: BENAZEPRIL 10MG TABLET PO SCH (08:17)
[2018-11-07] MEDS: INSULIN LISPRO 100 UNITS/ML SUBCUT SCH ×3 (08:21→17:46)
[2018-11-07] MEDS: INSULIN GLARGINE UD 100 UNITS/ML SYR SUBCUT SCH (09:46)
[2018-11-07 10:07] LABS: BASOPHILS % 1.1 % (0.0-2.0); HEMOGLOBIN. 13.5 g/dL (14.0-18.0); LYMPHOCYTES % 31.2 % (20.0-50.0); MEAN CORPUSCULAR HEMOGLOBIN 31.6 pg (28.0-32.0); MEAN CORPUSCULAR VOLUME 93.5 fL (80.0-94.0); MEAN PLATELET VOLUME 7.8 fl (7.4-10.4); MONOCYTES % 11.4 % (2.0-8.0); NEUTROPHILS % 49.3 % (40.0-76.0); PLATELET 311 x1000/uL (130-400); RED BLOOD CELL COUNT 4.28 mill/uL (4.7-6.1); RED CELL DISTRIBUTION WIDTH 14.8 % (11.6-14.6)
[2018-11-07 10:17] LABS: CHLORIDE 102 mEq/L (98-107)
[2018-11-07 12:00] VITALS: BP 136/64
[2018-11-07] MEDS ORDERED: LOT10 PO (14:14)
[2018-11-07 16:00] VITALS: BP 89/59
[2018-11-07 17:30] VITALS: BP 132/66
== END 2018-11-07 17:45 | disposition home or self-care (01) | DRG 463 ==
LOC: ER 14:59 → 6EST 10-28 08:17 → ENRESERV 10-28 10:37
PROVIDERS: ADMIT Internal Medicine; ATTEND Internal Medicine
DX: N39.0 Urinary tract infection, site not specified (principal); E11.65 Type 2 diabetes mellitus with hyperglycemia; E66.01 Morbid (severe) obesity due to excess calories; R32 Unspecified urinary incontinence; N32.81 Overactive bladder; E11.9 Type 2 diabetes mellitus without complications; K43.9 Ventral hernia without obstruction or gangrene; I10 Essential (primary) hypertension; E44.1 Mild protein-calorie malnutrition; Z96.649 Presence of unspecified artificial hip joint; J44.9 Chronic obstructive pulmonary disease, unspecified; F17.210 Nicotine dependence, cigarettes, uncomplicated; L30.4 Erythema intertrigo; Z59.0 Homelessness; Z79.4 Long term (current) use of insulin; Z99.3 Dependence on wheelchair; Z79.899 Other long term (current) drug therapy; Z68.35 Body mass index [BMI] 35.0-35.9, adult; L89.899 Pressure ulcer of other site, unspecified stage
CPT/HCPCS: 36415; 71045; 74176; 80048; 80061; 80305; 80307; 80329; 82550; 82962; 83735; 84100; 84134; 84443; 87077; 87186; 90686; 90732; 93970; 96365; 97162; 97166; 97530; 97535; 99285; C1893; J0696; J1200; J1650; J1815; J2270; J2405; Q0162; Q0163

== ENCOUNTER 2019-09-21 07:46 | Emergency (ER) | payer MEDICAID ==
[~2019-09-21] VITALS: Ht 165.1 cm; Wt 118.0 kg
[~2019-09-21 07:46] MED LIST changes: -AMLO2.5T45 PO; +LOT10 PO; +NYST15OI TP; -TRAZ-212 PO; +TRAZ-251 PO
[2019-09-21 13:00] LABS: CHLORIDE 100 mEq/L (98-107)
[2019-09-21 13:18] LABS: BASOPHILS % 0.3 % (0.0-2.0); EOSINOPHILS % 7.8 % (0.0-5.0); HEMATOCRIT. 45.5 % (42.0-52.0); HEMOGLOBIN. 15.3 g/dL (14.0-18.0); MEAN CORPUSCULAR VOLUME 92.4 fL (80.0-94.0); MEAN PLATELET VOLUME 8.5 fl (7.4-10.4); MONOCYTES % 8.8 % (2.0-8.0); NEUTROPHILS % 72.1 % (40.0-76.0); PLATELET 235 x1000/uL (130-400); RED BLOOD CELL COUNT 4.93 mill/uL (4.7-6.1); RED CELL DISTRIBUTION WIDTH 13.9 % (11.6-14.6)
[2019-09-21] MEDS ORDERED: IBUPROFEN 600MG TABLET PO ONE (14:00)
[2019-09-21] MEDS ORDERED: KETOROLAC 60MG/2ML VIAL IM ONE (16:30)
[2019-09-21] MEDS: TOLNAFTATE 1% CREAM 15GM TOP SCH (16:49)
[2019-09-21] MEDS ORDERED: INSULIN GLARGINE UD 100 UNITS/ML SYR SUBCUT SCH (19:00)
[2019-09-21] MEDS ORDERED: ACETAMINOPHEN 325MG TABLET PO ONE (22:15)
[2019-09-22] MEDS ORDERED: HYDROCODONE/ACETAMINOPHEN 5/325MG TABLET PO ONE (01:45)
[2019-09-22] MEDS ORDERED: NYSTATIN/TRIAMCIN OINT 15GM TOP SCH (01:45)
[2019-09-22] MEDS: NYSTATIN/TRIAMCIN CREAM 15GM TOP SCH ×2 (04:31→09:07)
[2019-09-22] MEDS ORDERED: IBUPROFEN 600MG TABLET PO ONE (08:00)
[2019-09-22] MEDS: TOLNAFTATE 1% CREAM 15GM TOP SCH (09:07)
[2019-09-22] MEDS ORDERED: INSULIN GLARGINE UD 100 UNITS/ML SYR SUBCUT ONE (10:00)
[2019-09-22 10:45] VITALS: BP 117/48
[2019-09-22] MEDS ORDERED: ACETAMINOPHEN 325MG TABLET PO ONE (12:00)
[2019-09-22] MEDS ORDERED: BACITRACIN ZINC OINT UDPKT TOP ONE (12:00)
[2019-09-24] MEDS ORDERED: BACL-141 PO (02:30)
[2019-09-24] MEDS ORDERED: GABA800T97 MT (02:30)
== END 2019-09-22 13:28 | disposition home or self-care (01) ==
LOC: ER 07:46
DX: E11.649 Type 2 diabetes mellitus with hypoglycemia without coma (principal); B35.6 Tinea cruris; J44.9 Chronic obstructive pulmonary disease, unspecified; Z96.649 Presence of unspecified artificial hip joint; Z79.4 Long term (current) use of insulin; Z79.899 Other long term (current) drug therapy
CPT/HCPCS: 36415; 71045; 80053; 82962; 83880; 84484; 85025; 87040; 93005; 96372; 99284; J1815; J1885

== ENCOUNTER 2019-09-22 12:37 | Emergency (ER) | payer MEDICAID ==
[~2019-09-22] VITALS: Ht 165.1 cm; Wt 136.0 kg
[~2019-09-22 12:37] MED LIST changes: +BENA10TA75 PO; -LOT10 PO
[2019-09-22 16:21] VITALS: BP 174/62
[2019-09-24] MEDS ORDERED: BACL-141 PO (02:30)
[2019-09-24] MEDS ORDERED: GABA800T97 MT (02:30)
[2019-09-26] MEDS ORDERED: GUAI600T44 MT (09:37)
== END 2019-09-22 22:17 | disposition left against medical advice (07) ==
LOC: ER 12:46
DX: R68.89 Other general symptoms and signs (principal); Z53.21 Procedure and treatment not carried out due to patient leaving prior to being seen by health care provider

== ENCOUNTER 2019-12-15 02:06 | Inpatient (IN) | payer MEDICAID ==
[~2019-12-15] VITALS: Ht 162.6 cm; Wt 137.9 kg
[~2019-12-15 02:06] MED LIST changes: +BACL-141 PO; +GABA800T97 MT; +GUAI600T44 MT
[2019-12-15] MEDS ORDERED: MORPHINE SULFATE 4 MG/ML CPJ (NOT FOR IM USE) IV STA (02:46)
[2019-12-15] MEDS ORDERED: ONDANSETRON HCL 4MG/2ML INJ IV STA (02:46)
[2019-12-15] MEDS ORDERED: CLINDAMYCIN 600 MG in DEXTROSE 5% WATER 50 ML IV ONE (03:00)
[2019-12-15] MEDS ORDERED: ASPIRIN 81MG EC TABLET PO ONE (03:15)
[2019-12-15] MEDS ORDERED: CLINDAMYCIN 600MG PREMIX 50 ML IV SCH (03:15)
[2019-12-15 03:40] LABS: CHLORIDE 97 mEq/L (98-107)
[2019-12-15 03:44] LABS: ETHANOL BLOOD < 10 mg/dL; HEMATOCRIT. 44.3 % (42.0-52.0); HEMOGLOBIN. 15.2 g/dL (14.0-18.0); MEAN CORPUSCULAR HEMOGLOBIN 31.9 pg (28.0-32.0); MEAN CORPUSCULAR VOLUME 93.2 fL (80.0-94.0); MEAN PLATELET VOLUME 7.9 fl (7.4-10.4); PLATELET 314 x1000/uL (130-400); RED BLOOD CELL COUNT 4.75 mill/uL (4.7-6.1); RED CELL DISTRIBUTION WIDTH 13.7 % (11.6-14.6)
[2019-12-15 03:58] LABS: PLATELET ESTIMATE NORMAL
[2019-12-15] MEDS ORDERED: ALBUTEROL (0.083%) 2.5MG/3ML NEB HHN ONE (04:15)
[2019-12-15] MEDS ORDERED: METHYLPREDNISOLONE SOD SUCC 125 MG/2 ML VIAL IV ONE (04:15)
[2019-12-15] MEDS ORDERED: ALBUTEROL 6.7GM HFA INHALER ORI PRN (04:30)
[2019-12-15] MEDS ORDERED: KETOROLAC 15MG/ML VIAL IV ONE (05:15)
[2019-12-15 09:32] VITALS: BP 137/50
[2019-12-15 09:33] VITALS: BP 137/50
[2019-12-15] MEDS ORDERED: PNEUMOCOCCAL 23-VAL P-SAC VAC 0.5 ML IM ONE (10:00)
[2019-12-15] MEDS ORDERED: DEXTROSE 50% WATER 50ML SYRINGE IV PRN (10:00)
[2019-12-15] MEDS ORDERED: ACETAMINOPHEN 325MG TABLET PO PRN (10:30)
[2019-12-15] MEDS ORDERED: ONDANSETRON HCL 4MG/2ML INJ IV PRN (10:30)
[2019-12-15] MEDS: BLOOD SUGAR DIAGNOSTIC STRIP TEST SCH ×3 (11:40→20:48)
[2019-12-15 12:00] VITALS: BP 106/80
[2019-12-15] MEDS: MORPHINE SULFATE 2 MG/ML CPJ (NOT FOR IM USE) IV PRN ×2 (13:00→18:30)
[2019-12-15] MEDS: INSULIN LISPRO 100 UNITS/ML SUBCUT SCH ×3 (13:14→21:28)
[2019-12-15 16:00] VITALS: BP 136/69
[2019-12-15] MEDS: CLINDAMYCIN 600MG PREMIX 50 ML IV SCH ×2 (18:31→20:48)
[2019-12-15] MEDS: BENZONATATE 100MG CAPSULE PO PRN (18:32)
[2019-12-15 20:00] VITALS: BP 140/74
[2019-12-15 20:53] LABS: CLARITY URINE CLOUDY (CLEAR); COLOR URINE YELLOW (YELLOW); KETONES URINE NEGATIVE (NEGATIVE); LEUKOCYTE ESTERASE URINE 2+ (NEGATIVE); NITRITE URINE NEGATIVE (NEGATIVE); OCCULT BLOOD URINE NEGATIVE (NEGATIVE); PROTEIN URINE 1+ (NEGATIVE); SPECIFIC GRAVITY URINE 1.021 (1.005-1.030); UROBILINOGEN URINE 0.2 E.U./dL (0.2-1.0)
[2019-12-15 21:04] LABS: *COCAINE SCREEN URINE PRESUMTIVE POSITIVE (NEGATIVE); CANNABINOID URINE SCREEN NEGATIVE (NEGATIVE); METHADONE URINE SCREEN NEGATIVE (NEGATIVE); OPIATES URINE SCREEN PRESUMTIVE POSITIVE (NEGATIVE); PHENCYCLIDINE URINE SCREEN NEGATIVE (NEGATIVE)
[2019-12-15 21:05] LABS: *AMPHETAMINES SCREEN URINE PRESUMTIVE POSITIVE (NEGATIVE); *BARBITURATES SCREEN URINE NEGATIVE (NEGATIVE); *BENZODIAZEPINES SCREEN URINE NEGATIVE (NEGATIVE)
[2019-12-15] MEDS: INSULIN GLARGINE UD 100 UNITS/ML SYR SUBCUT SCH (21:27)
[2019-12-16] VITALS: BP 144/79
[2019-12-16] MEDS: MORPHINE SULFATE 2 MG/ML CPJ (NOT FOR IM USE) IV PRN ×4 (00:46→20:59)
[2019-12-16 04:00] VITALS: BP_SYST 123; BP_SYST 126; BP_DIAS 62; BP_DIAS 73
[2019-12-16] MEDS: CLINDAMYCIN 600MG PREMIX 50 ML IV SCH ×3 (04:37→20:57)
[2019-12-16] MEDS: BLOOD SUGAR DIAGNOSTIC STRIP TEST SCH ×4 (06:18→20:59)
[2019-12-16] MEDS: INSULIN LISPRO 100 UNITS/ML SUBCUT SCH ×4 (06:18→21:16)
[2019-12-16 08:00] VITALS: BP 107/57
[2019-12-16] MEDS ORDERED: BENZONATATE 100MG CAPSULE PO PRN (10:30)
[2019-12-16] MEDS: INSULIN GLARGINE UD 100 UNITS/ML SYR SUBCUT SCH ×2 (10:39→23:05)
[2019-12-16 12:00] VITALS: BP 156/81
[2019-12-16] MEDS: DIPHENHYDRAMINE 50MG/ML VIAL IV PRN ×2 (12:49→22:44)
[2019-12-16 16:00] VITALS: BP 112/80
[2019-12-16 20:00] VITALS: BP 144/47
[2019-12-17] VITALS: BP 137/55
[2019-12-17] MEDS: MORPHINE SULFATE 2 MG/ML CPJ (NOT FOR IM USE) IV PRN ×2 (03:34→09:53)
[2019-12-17] MEDS: BENZONATATE 100MG CAPSULE PO PRN (03:41)
[2019-12-17] MEDS: CLINDAMYCIN 600MG PREMIX 50 ML IV SCH ×3 (03:45→22:07)
[2019-12-17 04:00] VITALS: BP 118/50
[2019-12-17 06:31] LABS: CHLORIDE 102 mEq/L (98-107)
[2019-12-17 06:42] LABS: BASOPHILS % 0.5 % (0.0-2.0); EOSINOPHILS % 6.9 % (0.0-5.0); HEMATOCRIT. 36.9 % (42.0-52.0); HEMOGLOBIN. 12.8 g/dL (14.0-18.0); MEAN CORPUSCULAR HEMOGLOBIN 32.2 pg (28.0-32.0); MEAN CORPUSCULAR VOLUME 92.9 fL (80.0-94.0); MEAN PLATELET VOLUME 8.2 fl (7.4-10.4); MONOCYTES % 11.9 % (2.0-8.0); NEUTROPHILS % 45.7 % (40.0-76.0); PLATELET 272 x1000/uL (130-400); RED BLOOD CELL COUNT 3.97 mill/uL (4.7-6.1)
[2019-12-17] MEDS: BLOOD SUGAR DIAGNOSTIC STRIP TEST SCH ×4 (07:02→20:43)
[2019-12-17] MEDS: INSULIN LISPRO 100 UNITS/ML SUBCUT SCH ×4 (07:05→22:02)
[2019-12-17 08:00] VITALS: BP 114/57
[2019-12-17] MEDS: INSULIN GLARGINE UD 100 UNITS/ML SYR SUBCUT SCH ×2 (09:36→22:01)
[2019-12-17] MEDS ORDERED: PREDNISONE 20MG TABLET PO SCH (11:30)
[2019-12-17 12:00] VITALS: BP 135/38
[2019-12-17] MEDS: CEFAZOLIN 1000MG PREMIX 50 ML IV SCH ×2 (14:32→23:23)
[2019-12-17] MEDS: HYDROCODONE/ACETAMINOPHEN 5/325MG TABLET PO PRN ×2 (14:33→23:28)
[2019-12-17 16:00] VITALS: BP 148/67
[2019-12-17 20:00] VITALS: BP 150/54
[2019-12-17] MEDS: GUAIFENESIN 600MG ER TABLET PO SCH (21:55)
[2019-12-18] VITALS: BP 163/74
[2019-12-18 04:00] VITALS: BP 148/74
[2019-12-18 04:11] LABS: HIV SCREEN 4G Non Reactive (Non Reactive)
[2019-12-18] MEDS: CLINDAMYCIN 600MG PREMIX 50 ML IV SCH ×3 (04:11→20:12)
[2019-12-18] MEDS: BLOOD SUGAR DIAGNOSTIC STRIP TEST SCH ×4 (06:41→21:00)
[2019-12-18] MEDS: INSULIN LISPRO 100 UNITS/ML SUBCUT SCH ×4 (06:46→21:34)
[2019-12-18] MEDS: CEFAZOLIN 1000MG PREMIX 50 ML IV SCH ×3 (06:46→21:23)
[2019-12-18 06:55] LABS: BASOPHILS % 0.6 % (0.0-2.0); HEMATOCRIT. 38.7 % (42.0-52.0); HEMOGLOBIN. 13.4 g/dL (14.0-18.0); LYMPHOCYTES % 31.1 % (20.0-50.0); MEAN CORPUSCULAR HEMOGLOBIN 32.4 pg (28.0-32.0); MEAN CORPUSCULAR VOLUME 93.6 fL (80.0-94.0); MEAN PLATELET VOLUME 7.9 fl (7.4-10.4); MONOCYTES % 9.8 % (2.0-8.0); NEUTROPHILS % 54.5 % (40.0-76.0); PLATELET 275 x1000/uL (130-400); RED BLOOD CELL COUNT 4.14 mill/uL (4.7-6.1); RED CELL DISTRIBUTION WIDTH 13.9 % (11.6-14.6)
[2019-12-18] MEDS: GUAIFENESIN 600MG ER TABLET PO SCH ×2 (08:19→21:24)
[2019-12-18] MEDS: METFORMIN HCL 500MG TABLET PO SCH ×2 (08:20→17:34)
[2019-12-18] MEDS: HYDROCODONE/ACETAMINOPHEN 5/325MG TABLET PO PRN ×3 (08:23→22:45)
[2019-12-18 08:27] VITALS: BP 141/58
[2019-12-18] MEDS: BUDESONIDE 0.5MG/2ML NEB HHN SCH ×2 (08:40→20:45)
[2019-12-18] MEDS: IPRATROPIUM/ALBUTEROL 0.5-3(2.5)MG/3ML NEB HHN SCH ×3 (08:43→20:45)
[2019-12-18] MEDS: INSULIN GLARGINE UD 100 UNITS/ML SYR SUBCUT SCH ×2 (10:10→21:34)
[2019-12-18 11:44] VITALS: BP 159/82
[2019-12-18] MEDS ORDERED: CLONIDINE 0.1MG TABLET PO SCH (14:00)
[2019-12-18 15:38] VITALS: BP 127/70
[2019-12-18 20:00] VITALS: BP 150/79
[2019-12-18] MEDS: CLONIDINE 0.1MG TABLET PO PRN (23:47)
[2019-12-19] VITALS: BP 162/70
[2019-12-19] MEDS: CLINDAMYCIN 600MG PREMIX 50 ML IV SCH ×3 (04:11→20:38)
[2019-12-19] MEDS: CEFAZOLIN 1000MG PREMIX 50 ML IV SCH ×3 (05:04→22:20)
[2019-12-19] MEDS: INSULIN LISPRO 100 UNITS/ML SUBCUT SCH ×4 (05:43→20:39)
[2019-12-19] MEDS: BLOOD SUGAR DIAGNOSTIC STRIP TEST SCH ×4 (05:43→20:37)
[2019-12-19] MEDS: METFORMIN HCL 500MG TABLET PO SCH ×2 (06:52→16:40)
[2019-12-19 08:00] VITALS: BP 133/68
[2019-12-19] MEDS: BUDESONIDE 0.5MG/2ML NEB HHN SCH ×2 (08:54→21:53)
[2019-12-19] MEDS: IPRATROPIUM/ALBUTEROL 0.5-3(2.5)MG/3ML NEB HHN SCH ×2 (08:54→17:13)
[2019-12-19] MEDS: GUAIFENESIN 600MG ER TABLET PO SCH ×2 (09:31→20:38)
[2019-12-19] MEDS: INSULIN GLARGINE UD 100 UNITS/ML SYR SUBCUT SCH ×2 (09:37→22:20)
[2019-12-19] MEDS: HYDROCODONE/ACETAMINOPHEN 5/325MG TABLET PO PRN ×2 (11:44→22:38)
[2019-12-19 12:00] VITALS: BP 159/97
[2019-12-19 16:00] VITALS: BP 136/60
[2019-12-19 20:00] VITALS: BP 137/65
[2019-12-20] VITALS (7 sets, daily range): BP systolic 124–184; BP diastolic 55–78
[2019-12-20] MEDS: IPRATROPIUM/ALBUTEROL 0.5-3(2.5)MG/3ML NEB HHN SCH ×4 (00:31→16:13)
[2019-12-20] MEDS: CLINDAMYCIN 600MG PREMIX 50 ML IV SCH ×3 (03:59→20:44)
[2019-12-20] MEDS: BLOOD SUGAR DIAGNOSTIC STRIP TEST SCH ×4 (06:29→20:22)
[2019-12-20] MEDS: CEFAZOLIN 1000MG PREMIX 50 ML IV SCH ×3 (06:41→20:21)
[2019-12-20] MEDS: INSULIN LISPRO 100 UNITS/ML SUBCUT SCH ×4 (06:42→21:01)
[2019-12-20] MEDS: HYDROCODONE/ACETAMINOPHEN 5/325MG TABLET PO PRN ×3 (06:42→21:20)
[2019-12-20] MEDS: METFORMIN HCL 500MG TABLET PO SCH ×2 (06:43→17:32)
[2019-12-20] MEDS: GUAIFENESIN 600MG ER TABLET PO SCH ×2 (08:23→20:22)
[2019-12-20] MEDS: BUDESONIDE 0.5MG/2ML NEB HHN SCH (09:00)
[2019-12-20] MEDS: INSULIN GLARGINE UD 100 UNITS/ML SYR SUBCUT SCH ×2 (10:50→21:01)
[2019-12-20] MEDS: ENOXAPARIN 40MG/0.4ML SYR SUBCUT SCH ×2 (12:40→20:22)
[2019-12-20] MEDS: CLONIDINE 0.1MG TABLET PO PRN (20:55)
[2019-12-21 04:00] VITALS: BP 138/73
[2019-12-21] MEDS: CEFAZOLIN 1000MG PREMIX 50 ML IV SCH ×3 (04:32→21:28)
[2019-12-21] MEDS: BLOOD SUGAR DIAGNOSTIC STRIP TEST SCH ×4 (04:32→20:22)
[2019-12-21] MEDS: METFORMIN HCL 500MG TABLET PO SCH ×2 (04:33→17:25)
[2019-12-21] MEDS: HYDROCODONE/ACETAMINOPHEN 5/325MG TABLET PO PRN ×2 (05:41→21:28)
[2019-12-21] MEDS: INSULIN LISPRO 100 UNITS/ML SUBCUT SCH ×4 (06:26→20:22)
[2019-12-21 08:15] VITALS: BP 106/44
[2019-12-21] MEDS: GUAIFENESIN 600MG ER TABLET PO SCH ×2 (08:32→21:27)
[2019-12-21 08:37] VITALS: BP 106/43
[2019-12-21] MEDS: INSULIN GLARGINE UD 100 UNITS/ML SYR SUBCUT SCH ×2 (10:04→21:37)
[2019-12-21] MEDS: ENOXAPARIN 40MG/0.4ML SYR SUBCUT SCH ×2 (11:04→22:08)
[2019-12-21 12:15] VITALS: BP 127/69
[2019-12-21 16:11] VITALS: BP 117/37
[2019-12-21 20:00] VITALS: BP 140/70
[2019-12-22] MEDS: HYDROCODONE/ACETAMINOPHEN 5/325MG TABLET PO PRN ×2 (03:33→10:47)
[2019-12-22 04:00] VITALS: BP 115/67
[2019-12-22] MEDS: CEFAZOLIN 1000MG PREMIX 50 ML IV SCH ×3 (06:02→22:17)
[2019-12-22] MEDS: BLOOD SUGAR DIAGNOSTIC STRIP TEST SCH ×4 (06:02→21:37)
[2019-12-22] MEDS: INSULIN LISPRO 100 UNITS/ML SUBCUT SCH ×4 (07:15→21:58)
[2019-12-22 08:00] VITALS: BP 146/71
[2019-12-22] MEDS: IPRATROPIUM/ALBUTEROL 0.5-3(2.5)MG/3ML NEB HHN SCH ×3 (09:04→15:19)
[2019-12-22] MEDS: METFORMIN HCL 500MG TABLET PO SCH ×2 (09:38→17:28)
[2019-12-22] MEDS: ENOXAPARIN 40MG/0.4ML SYR SUBCUT SCH ×2 (10:46→22:18)
[2019-12-22] MEDS: GUAIFENESIN 600MG ER TABLET PO SCH ×2 (10:47→21:57)
[2019-12-22] MEDS: INSULIN GLARGINE UD 100 UNITS/ML SYR SUBCUT SCH ×2 (10:51→21:58)
[2019-12-22 15:37] VITALS: BP 146/71
[2019-12-22 16:00] VITALS: BP 158/53
[2019-12-22 20:00] VITALS: BP 151/78
[2019-12-22] MEDS: ACETAMINOPHEN 325MG TABLET PO PRN (21:57)
[2019-12-23] VITALS: BP 157/69
[2019-12-23 04:00] VITALS: BP 144/73
[2019-12-23] MEDS: BLOOD SUGAR DIAGNOSTIC STRIP TEST SCH ×4 (06:16→21:00)
[2019-12-23] MEDS: METFORMIN HCL 500MG TABLET PO SCH ×2 (06:48→17:15)
[2019-12-23] MEDS: INSULIN LISPRO 100 UNITS/ML SUBCUT SCH ×4 (06:48→22:32)
[2019-12-23 08:00] VITALS: BP 144/70
[2019-12-23] MEDS: GUAIFENESIN 600MG ER TABLET PO SCH ×2 (09:09→22:31)
[2019-12-23] MEDS: INSULIN GLARGINE UD 100 UNITS/ML SYR SUBCUT SCH ×2 (09:17→22:32)
[2019-12-23 09:49] LABS: AMPHETAMINE CONF URINE Positive (.)
[2019-12-23] MEDS: IPRATROPIUM/ALBUTEROL 0.5-3(2.5)MG/3ML NEB HHN SCH ×2 (10:31→22:00)
[2019-12-23 12:00] VITALS: BP 147/72
[2019-12-23 13:06] LABS: OPIATES CONFIRMATION URINE Positive (.)
[2019-12-23] MEDS: ENOXAPARIN 40MG/0.4ML SYR SUBCUT SCH ×2 (13:07→22:33)
[2019-12-23 16:00] VITALS: BP 142/69
[2019-12-23 20:00] VITALS: BP 142/69
[2019-12-24] VITALS: BP 139/64
[2019-12-24 04:00] VITALS: BP 159/55
[2019-12-24 06:08] LABS: COCAINE CONFIRMATION URINE Positive (.)
[2019-12-24] MEDS: BLOOD SUGAR DIAGNOSTIC STRIP TEST SCH ×4 (06:59→20:00)
[2019-12-24] MEDS: INSULIN LISPRO 100 UNITS/ML SUBCUT SCH ×4 (07:03→20:00)
[2019-12-24] MEDS: METFORMIN HCL 500MG TABLET PO SCH ×2 (07:03→17:27)
[2019-12-24 08:00] VITALS: BP 131/74
[2019-12-24] MEDS: IPRATROPIUM/ALBUTEROL 0.5-3(2.5)MG/3ML NEB HHN SCH (09:17)
[2019-12-24] MEDS: GUAIFENESIN 600MG ER TABLET PO SCH (09:31)
[2019-12-24] MEDS: INSULIN GLARGINE UD 100 UNITS/ML SYR SUBCUT SCH ×2 (09:32→22:02)
[2019-12-24] MEDS: ENOXAPARIN 40MG/0.4ML SYR SUBCUT SCH ×2 (11:35→22:01)
[2019-12-24] MEDS: ACETAMINOPHEN 325MG TABLET PO PRN (11:36)
[2019-12-24 12:00] VITALS: BP 141/73
[2019-12-24] MEDS ORDERED: METF500T PO (13:02)
[2019-12-24] MEDS ORDERED: IPRATROPIUM/ALBUTEROL 0.5-3(2.5)MG/3ML NEB HHN PRN (13:15)
[2019-12-24 16:00] VITALS: BP 124/60
[2019-12-24 20:00] VITALS: BP_SYST 126; BP_SYST 147; BP_DIAS 86; BP_DIAS 90
[2019-12-25] VITALS: BP 125/46
[2019-12-25 04:00] VITALS: BP 137/70
[2019-12-25] MEDS: ACETAMINOPHEN 325MG TABLET PO PRN ×2 (04:17→23:49)
[2019-12-25] MEDS: BLOOD SUGAR DIAGNOSTIC STRIP TEST SCH ×4 (05:51→21:20)
[2019-12-25] MEDS: METFORMIN HCL 500MG TABLET PO SCH ×2 (06:15→18:23)
[2019-12-25] MEDS: INSULIN LISPRO 100 UNITS/ML SUBCUT SCH ×4 (06:23→21:39)
[2019-12-25 08:00] VITALS: BP_SYST 131; BP_DIAS 52; BP_DIAS 56
[2019-12-25] MEDS: INSULIN GLARGINE UD 100 UNITS/ML SYR SUBCUT SCH ×2 (11:21→21:39)
[2019-12-25] MEDS: ENOXAPARIN 40MG/0.4ML SYR SUBCUT SCH ×2 (11:25→23:49)
[2019-12-25 12:00] VITALS: BP 116/94
[2019-12-25] MEDS ORDERED: IBUPROFEN 600MG TABLET PO NR (12:00)
[2019-12-25] MEDS ORDERED: METHOCARBAMOL 500MG TABLET PO NR (12:00)
[2019-12-25 16:00] VITALS: BP 145/76
[2019-12-25 20:00] VITALS: BP 142/52
[2019-12-26] VITALS: BP 153/48
[2019-12-26 04:00] VITALS: BP 111/65
[2019-12-26] MEDS: BLOOD SUGAR DIAGNOSTIC STRIP TEST SCH ×4 (06:31→21:47)
[2019-12-26] MEDS: METFORMIN HCL 500MG TABLET PO SCH ×2 (06:31→17:31)
[2019-12-26 08:00] VITALS: BP 135/75
[2019-12-26] MEDS: INSULIN LISPRO 100 UNITS/ML SUBCUT SCH ×4 (08:11→21:48)
[2019-12-26] MEDS: ACETAMINOPHEN 325MG TABLET PO PRN ×2 (08:31→21:52)
[2019-12-26] MEDS: INSULIN GLARGINE UD 100 UNITS/ML SYR SUBCUT SCH ×2 (11:04→21:49)
[2019-12-26] MEDS: ENOXAPARIN 40MG/0.4ML SYR SUBCUT SCH ×2 (11:33→22:24)
[2019-12-26 12:00] VITALS: BP 129/71
[2019-12-26 16:00] VITALS: BP 131/80
[2019-12-26 20:00] VITALS: BP 127/49
[2019-12-27] VITALS: BP 132/79
[2019-12-27 04:00] VITALS: BP 159/69
[2019-12-27] MEDS: BLOOD SUGAR DIAGNOSTIC STRIP TEST SCH ×4 (05:45→20:49)
[2019-12-27] MEDS: INSULIN LISPRO 100 UNITS/ML SUBCUT SCH ×4 (06:17→20:54)
[2019-12-27 06:54] LABS: CHLORIDE 103 mEq/L (98-107)
[2019-12-27 07:10] LABS: BASOPHILS % 0.9 % (0.0-2.0); EOSINOPHILS % 8.4 % (0.0-5.0); HEMATOCRIT. 41.2 % (42.0-52.0); LYMPHOCYTES % 30.3 % (20.0-50.0); MEAN CORPUSCULAR HEMOGLOBIN 31.3 pg (28.0-32.0); MEAN CORPUSCULAR VOLUME 92.1 fL (80.0-94.0); MEAN PLATELET VOLUME 8.5 fl (7.4-10.4); MONOCYTES % 10.8 % (2.0-8.0); NEUTROPHILS % 49.6 % (40.0-76.0); PLATELET 249 x1000/uL (130-400); RED BLOOD CELL COUNT 4.48 mill/uL (4.7-6.1); RED CELL DISTRIBUTION WIDTH 13.7 % (11.6-14.6)
[2019-12-27 08:00] VITALS: BP 150/60
[2019-12-27] MEDS: METFORMIN HCL 500MG TABLET PO SCH ×2 (08:07→16:51)
[2019-12-27] MEDS: ENOXAPARIN 40MG/0.4ML SYR SUBCUT SCH ×2 (10:42→22:04)
[2019-12-27] MEDS: INSULIN GLARGINE UD 100 UNITS/ML SYR SUBCUT SCH ×2 (10:47→22:05)
[2019-12-27 12:00] VITALS: BP 142/64
[2019-12-27 16:00] VITALS: BP 123/61
[2019-12-27 20:00] VITALS: BP 145/69
[2019-12-27] MEDS: ACETAMINOPHEN 325MG TABLET PO PRN (22:04)
[2019-12-28] VITALS: BP 132/51
[2019-12-28] MEDS: METFORMIN HCL 500MG TABLET PO SCH ×2 (06:22→18:30)
[2019-12-28] MEDS: BLOOD SUGAR DIAGNOSTIC STRIP TEST SCH ×4 (06:22→21:05)
[2019-12-28] MEDS: INSULIN LISPRO 100 UNITS/ML SUBCUT SCH ×4 (06:31→21:12)
[2019-12-28 08:00] VITALS: BP 122/50
[2019-12-28] MEDS: ACETAMINOPHEN 325MG TABLET PO PRN ×4 (09:21→22:10)
[2019-12-28] MEDS: INSULIN GLARGINE UD 100 UNITS/ML SYR SUBCUT SCH ×2 (11:22→21:12)
[2019-12-28] MEDS: ENOXAPARIN 40MG/0.4ML SYR SUBCUT SCH ×2 (11:33→22:10)
[2019-12-28 12:00] VITALS: BP 131/63
[2019-12-28] MEDS: IBUPROFEN 600MG TABLET PO PRN (15:03)
[2019-12-28] MEDS: BACLOFEN 10MG TABLET PO SCH ×2 (15:04→21:06)
[2019-12-28 16:00] VITALS: BP 133/74
[2019-12-28 20:00] VITALS: BP 126/65
[2019-12-29] VITALS: BP 131/60
[2019-12-29 04:00] VITALS: BP 139/50
[2019-12-29] MEDS: BLOOD SUGAR DIAGNOSTIC STRIP TEST SCH ×4 (06:10→21:06)
[2019-12-29] MEDS: INSULIN LISPRO 100 UNITS/ML SUBCUT SCH ×4 (06:42→21:58)
[2019-12-29] MEDS: BACLOFEN 10MG TABLET PO SCH ×3 (06:42→21:06)
[2019-12-29] MEDS: METFORMIN HCL 500MG TABLET PO SCH ×2 (06:42→18:44)
[2019-12-29] MEDS: IBUPROFEN 600MG TABLET PO PRN ×2 (06:47→22:28)
[2019-12-29 08:00] VITALS: BP 131/63
[2019-12-29] MEDS: ENOXAPARIN 40MG/0.4ML SYR SUBCUT SCH ×2 (11:38→22:18)
[2019-12-29] MEDS: INSULIN GLARGINE UD 100 UNITS/ML SYR SUBCUT SCH ×2 (11:39→21:57)
[2019-12-29 12:00] VITALS: BP 125/63
[2019-12-29] MEDS: ACETAMINOPHEN 325MG TABLET PO PRN (15:16)
[2019-12-29 16:00] VITALS: BP 128/55
[2019-12-29 20:00] VITALS: BP 138/65
[2019-12-30 04:00] VITALS: BP 139/59
[2019-12-30] MEDS: BLOOD SUGAR DIAGNOSTIC STRIP TEST SCH ×2 (05:58→11:53)
[2019-12-30] MEDS: BACLOFEN 10MG TABLET PO SCH (05:58)
[2019-12-30] MEDS: INSULIN LISPRO 100 UNITS/ML SUBCUT SCH ×2 (07:15→11:53)
[2019-12-30 08:00] VITALS: BP 137/66
[2019-12-30] MEDS: METFORMIN HCL 500MG TABLET PO SCH (08:21)
[2019-12-30] MEDS: IBUPROFEN 600MG TABLET PO PRN (08:57)
[2019-12-30] MEDS: INSULIN GLARGINE UD 100 UNITS/ML SYR SUBCUT SCH (10:45)
[2019-12-30] MEDS: ENOXAPARIN 40MG/0.4ML SYR SUBCUT SCH (11:26)
[2019-12-30 12:00] VITALS: BP 153/82
[2019-12-30] MEDS ORDERED: LANTUSUD SUBCUT (12:41)
[2019-12-30] MEDS ORDERED: INSLIS SUBCUT (12:41)
[2019-12-30] MEDS ORDERED: BENA10TA75 PO (12:41)
[2019-12-30 12:42] VITALS: BP 153/82
== END 2019-12-30 14:20 | DRG 720 ==
LOC: ER 02:06 → EDBEDREQ 03:34 → 7EST 04:50 → EDBEDREQ 04:55 → ENRESERV 06:35 → 5WST 12-16 20:05
PROVIDERS: ADMIT Internal Medicine; ATTEND Internal Medicine
DX: A41.59 Other Gram-negative sepsis (principal); J96.00 Acute respiratory failure, unspecified whether with hypoxia or hypercapnia; E87.8 Other disorders of electrolyte and fluid balance, not elsewhere classified; E87.1 Hypo-osmolality and hyponatremia; F11.20 Opioid dependence, uncomplicated; E66.01 Morbid (severe) obesity due to excess calories; M94.0 Chondrocostal junction syndrome [Tietze]; J82 Pulmonary eosinophilia, not elsewhere classified; E11.9 Type 2 diabetes mellitus without complications; I10 Essential (primary) hypertension; N50.89 Other specified disorders of the male genital organs; Z96.649 Presence of unspecified artificial hip joint; K43.9 Ventral hernia without obstruction or gangrene; N39.0 Urinary tract infection, site not specified; Z20.828 Contact with and (suspected) exposure to other viral communicable diseases; N49.2 Inflammatory disorders of scrotum; F15.10 Other stimulant abuse, uncomplicated; N32.81 Overactive bladder; B96.1 Klebsiella pneumoniae [K. pneumoniae] as the cause of diseases classified elsewhere; F14.10 Cocaine abuse, uncomplicated; Z68.43 Body mass index [BMI] 50.0-59.9, adult; Z99.3 Dependence on wheelchair; Z79.4 Long term (current) use of insulin; Z59.0 Homelessness; Z79.899 Other long term (current) drug therapy; Z71.3 Dietary counseling and surveillance; J44.9 Chronic obstructive pulmonary disease, unspecified
CPT/HCPCS: 36415; 71045; 80048; 80053; 80305; 80307; 80320; 80353; 80361; 81003; 82962; 83036; 83880; 84484; 85025; 87077; 87186; 87389; 87420; 87635; 87804; 93005; 94640; 96374; 97110; 97116; 97162; 97530; 99285; J0690; J1200; J1650; J1815; J1885; J2270; J2405; J2930; J3490; J7512; J7626; G0480

== ENCOUNTER 2020-04-18 16:23 | Emergency (ER) | payer MEDICAID ==
[~2020-04-18] VITALS: Ht 180.3 cm; Wt 170.0 kg
[~2020-04-18 16:23] MED LIST changes: +METF500T PO; -NYST15OI TP
[2020-04-18] MEDS ORDERED: NYSTATIN POWDER 15GM TOP STA (16:48)
[2020-04-18] MEDS ORDERED: ZINC OXIDE 20% OINT 30GM TOP STA (16:48)
[2020-04-18] MEDS ORDERED: ACETAMINOPHEN 325MG TABLET PO ONE (17:00)
[2020-04-19 07:55] VITALS: BP 146/82
== END 2020-04-19 09:44 | disposition home or self-care (01) ==
LOC: ER 16:29
DX: B37.9 Candidiasis, unspecified (principal); J44.9 Chronic obstructive pulmonary disease, unspecified; E11.9 Type 2 diabetes mellitus without complications; Z98.890 Other specified postprocedural states; Z96.649 Presence of unspecified artificial hip joint; Z79.899 Other long term (current) drug therapy
CPT/HCPCS: 93005; 99285

== ENCOUNTER 2020-05-23 17:57 | Inpatient (IN) | payer MEDICAID ==
[~2020-05-23] VITALS: Ht 172.7 cm; Wt 137.9 kg
[2020-05-23] MEDS ORDERED: ASPIRIN 81MG TABLET PO ONE (19:30)
[2020-05-23] MEDS ORDERED: NITROGLYCERIN 0.4MG TABLET SL SL PRN (19:30)
[2020-05-23] MEDS ORDERED: CEFTRIAXONE 1 G PREMIX 50 ML IV ONE (21:15)
[2020-05-23] MEDS ORDERED: AZITHROMYCIN 500 MG in DEXT 5% WATER 250 ML IV ONE (21:15)
[2020-05-23 21:18] LABS: HEMATOCRIT. 39.6 % (42.0-52.0); HEMOGLOBIN. 13.3 g/dL (14.0-18.0); MEAN CORPUSCULAR HEMOGLOBIN 31.4 pg (28.0-32.0); MEAN CORPUSCULAR VOLUME 93.5 fL (80.0-94.0); MEAN PLATELET VOLUME 8.4 fl (7.4-10.4); PLATELET 265 x1000/uL (130-400); RED BLOOD CELL COUNT 4.23 mill/uL (4.7-6.1); RED CELL DISTRIBUTION WIDTH 13.5 % (11.6-14.6)
[2020-05-23 21:20] LABS: CHLORIDE 91 mEq/L (98-107)
[2020-05-23 21:25] LABS: D-DIMER 0.78 mg/L FEU (<0.50); PARTIAL THROMBOPLASTIN TIME 27.7 sec (23.4-31.0)
[2020-05-23 22:20] LABS: PLATELET ESTIMATE NORMAL
[2020-05-24] VITALS (7 sets, daily range): BP systolic 90–142; BP diastolic 32–61
[2020-05-24] MEDS ORDERED: ONDANSETRON HCL 4MG TABLET PO PRN (06:30)
[2020-05-24] MEDS ORDERED: DEXTROSE 50% WATER 50ML SYRINGE IV PRN (06:30)
[2020-05-24] MEDS ORDERED: BACLOFEN 10MG TABLET PO ONE (06:30)
[2020-05-24] MEDS ORDERED: CLONIDINE 0.1MG TABLET PO PRN (06:30)
[2020-05-24] MEDS: BLOOD SUGAR DIAGNOSTIC STRIP TEST SCH ×3 (07:10→20:49)
[2020-05-24] MEDS: METOPROLOL TARTRATE 50MG TABLET PO SCH ×2 (09:00→09:06)
[2020-05-24] MEDS: BENAZEPRIL 10MG TABLET PO SCH ×2 (09:00→09:05)
[2020-05-24] MEDS: TAMSULOSIN HCL 0.4MG SR CAPSULE PO SCH (09:05)
[2020-05-24] MEDS: ASPIRIN 325MG TABLET PO SCH (09:05)
[2020-05-24] MEDS: INSULIN LISPRO 100 UNITS/ML SUBCUT SCH ×4 (09:07→21:58)
[2020-05-24] MEDS: INSULIN GLARGINE UD 100 UNITS/ML SYR SUBCUT SCH ×2 (10:46→21:58)
[2020-05-24] MEDS: SODIUM CHLORIDE 0.9% 1,000 ML IV SCH (16:30)
[2020-05-24] MEDS ORDERED: IPRATROPIUM/ALBUTEROL 0.5-3(2.5)MG/3ML NEB HHN PRN (16:30)
[2020-05-24] MEDS: ENOXAPARIN 40MG/0.4ML SYR SUBCUT SCH (19:16)
[2020-05-24] MEDS: IPRATROPIUM/ALBUTEROL 0.5-3(2.5)MG/3ML NEB HHN SCH (20:00)
[2020-05-24] MEDS: BUDESONIDE 0.5MG/2ML NEB HHN SCH (20:00)
[2020-05-24 21:00] LABS: HEMATOCRIT. 38.2 % (42.0-52.0); HEMOGLOBIN. 12.8 g/dL (14.0-18.0); MEAN CORPUSCULAR HEMOGLOBIN 30.6 pg (28.0-32.0); MEAN CORPUSCULAR VOLUME 91.4 fL (80.0-94.0); MEAN PLATELET VOLUME 8.4 fl (7.4-10.4); PLATELET 252 x1000/uL (130-400); RED BLOOD CELL COUNT 4.18 mill/uL (4.7-6.1); RED CELL DISTRIBUTION WIDTH 13.4 % (11.6-14.6)
[2020-05-24 21:05] LABS: CHLORIDE 94 mEq/L (98-107)
[2020-05-24 21:12] LABS: LDL CHOLESTEROL 68 mg/dL (5-100)
[2020-05-24 21:13] LABS: CREATINE KINASE 978 IU/L (39-308); HDL CHOLESTEROL 30 mg/dL (40-59)
[2020-05-24] MEDS: TRAZODONE HCL 50MG TABLET PO SCH (21:59)
[2020-05-24] MEDS: GABAPENTIN 300MG CAPSULE PO SCH (21:59)
[2020-05-24 22:38] LABS: ATYPICAL LYMPHOCYTES 1; PLATELET ESTIMATE NORMAL
[2020-05-25] VITALS: BP 136/56
[2020-05-25] MEDS: TRAMADOL 50MG TABLET PO PRN ×3 (02:22→20:24)
[2020-05-25] MEDS: SODIUM CHLORIDE 0.9% 1,000 ML IV SCH ×2 (02:26→17:20)
[2020-05-25 03:29] LABS: CLARITY URINE CLEAR (CLEAR); COLOR URINE YELLOW (YELLOW); KETONES URINE NEGATIVE (NEGATIVE); LEUKOCYTE ESTERASE URINE TRACE (NEGATIVE); NITRITE URINE NEGATIVE (NEGATIVE); OCCULT BLOOD URINE NEGATIVE (NEGATIVE); PH URINE 5.5 (4.5-8.0); PROTEIN URINE TRACE (NEGATIVE); SPECIFIC GRAVITY URINE 1.016 (1.005-1.030); UROBILINOGEN URINE 0.2 E.U./dL (0.2-1.0)
[2020-05-25 03:42] LABS: SODIUM URINE RANDOM 44 mEq/L
[2020-05-25 03:50] LABS: *COCAINE SCREEN URINE PRESUMTIVE POSITIVE (NEGATIVE); CANNABINOID URINE SCREEN NEGATIVE (NEGATIVE); METHADONE URINE SCREEN NEGATIVE (NEGATIVE); OPIATES URINE SCREEN NEGATIVE (NEGATIVE); PHENCYCLIDINE URINE SCREEN NEGATIVE (NEGATIVE)
[2020-05-25 03:51] LABS: *AMPHETAMINES SCREEN URINE PRESUMTIVE POSITIVE (NEGATIVE); *BARBITURATES SCREEN URINE NEGATIVE (NEGATIVE); *BENZODIAZEPINES SCREEN URINE NEGATIVE (NEGATIVE)
[2020-05-25 04:00] VITALS: BP 100/42
[2020-05-25] MEDS: INSULIN LISPRO 100 UNITS/ML SUBCUT SCH ×4 (06:01→21:14)
[2020-05-25] MEDS: BLOOD SUGAR DIAGNOSTIC STRIP TEST SCH ×4 (06:11→21:06)
[2020-05-25 06:29] LABS: HEMATOCRIT. 38.3 % (42.0-52.0); HEMOGLOBIN. 13.1 g/dL (14.0-18.0); MEAN CORPUSCULAR HEMOGLOBIN 31.3 pg (28.0-32.0); MEAN CORPUSCULAR VOLUME 91.2 fL (80.0-94.0); MEAN PLATELET VOLUME 8.6 fl (7.4-10.4); PLATELET 256 x1000/uL (130-400); RED CELL DISTRIBUTION WIDTH 13.3 % (11.6-14.6)
[2020-05-25 07:09] LABS: PHOSPHORUS 3.4 mg/dL (2.5-4.9)
[2020-05-25 08:00] VITALS: BP 113/51
[2020-05-25] MEDS: IPRATROPIUM/ALBUTEROL 0.5-3(2.5)MG/3ML NEB HHN SCH ×3 (08:18→21:14)
[2020-05-25] MEDS: BUDESONIDE 0.5MG/2ML NEB HHN SCH ×2 (08:19→21:14)
[2020-05-25] MEDS: ASPIRIN 325MG TABLET PO SCH (09:00)
[2020-05-25] MEDS: TAMSULOSIN HCL 0.4MG SR CAPSULE PO SCH (09:09)
[2020-05-25 09:28] LABS: CLARITY URINE CLEAR (CLEAR); COLOR URINE YELLOW (YELLOW); KETONES URINE TRACE (NEGATIVE); LEUKOCYTE ESTERASE URINE 2+ (NEGATIVE); NITRITE URINE NEGATIVE (NEGATIVE); OCCULT BLOOD URINE TRACE (NEGATIVE); PROTEIN URINE 1+ (NEGATIVE); SPECIFIC GRAVITY URINE 1.019 (1.005-1.030); UROBILINOGEN URINE 0.2 E.U./dL (0.2-1.0)
[2020-05-25] MEDS: INSULIN GLARGINE UD 100 UNITS/ML SYR SUBCUT SCH ×2 (10:13→22:10)
[2020-05-25 10:44] LABS: PLATELET ESTIMATE NORMAL
[2020-05-25 12:00] VITALS: BP 116/68
[2020-05-25] MEDS: ENOXAPARIN 40MG/0.4ML SYR SUBCUT SCH (17:00)
[2020-05-25 20:00] VITALS: BP 149/73
[2020-05-25] MEDS: TRAZODONE HCL 50MG TABLET PO SCH (21:12)
[2020-05-25] MEDS: GABAPENTIN 300MG CAPSULE PO SCH (21:12)
[2020-05-26] VITALS (7 sets, daily range): BP systolic 116–170; BP diastolic 52–80
[2020-05-26] MEDS: SODIUM CHLORIDE 0.9% 1,000 ML IV SCH (01:05)
[2020-05-26] MEDS: IPRATROPIUM/ALBUTEROL 0.5-3(2.5)MG/3ML NEB HHN SCH ×3 (01:58→14:39)
[2020-05-26] MEDS: BLOOD SUGAR DIAGNOSTIC STRIP TEST SCH ×2 (05:29→12:10)
[2020-05-26] MEDS: INSULIN LISPRO 100 UNITS/ML SUBCUT SCH ×2 (05:47→13:30)
[2020-05-26 06:53] LABS: BASOPHILS % 0.7 % (0.0-2.0); EOSINOPHILS % 6.2 % (0.0-5.0); HEMATOCRIT. 37.2 % (42.0-52.0); HEMOGLOBIN. 12.7 g/dL (14.0-18.0); LYMPHOCYTES % 17.6 % (20.0-50.0); MEAN CORPUSCULAR HEMOGLOBIN 31.2 pg (28.0-32.0); MEAN CORPUSCULAR VOLUME 91.2 fL (80.0-94.0); MEAN PLATELET VOLUME 7.9 fl (7.4-10.4); MONOCYTES % 14.9 % (2.0-8.0); NEUTROPHILS % 60.6 % (40.0-76.0); PLATELET 282 x1000/uL (130-400); RED BLOOD CELL COUNT 4.08 mill/uL (4.7-6.1); RED CELL DISTRIBUTION WIDTH 13.5 % (11.6-14.6)
[2020-05-26 07:10] LABS: CHLORIDE 104 mEq/L (98-107)
[2020-05-26 07:20] LABS: PHOSPHORUS 2.1 mg/dL (2.5-4.9)
[2020-05-26 07:23] LABS: T4 FREE 1.19 ng/dL (0.76-1.46)
[2020-05-26] MEDS: BUDESONIDE 0.5MG/2ML NEB HHN SCH (09:09)
[2020-05-26] MEDS: INSULIN GLARGINE UD 100 UNITS/ML SYR SUBCUT SCH (10:54)
[2020-05-26] MEDS: ASPIRIN 325MG TABLET PO SCH (10:54)
[2020-05-26] MEDS: TAMSULOSIN HCL 0.4MG SR CAPSULE PO SCH (10:54)
[2020-05-26] MEDS ORDERED: SODIUM PHOS,M-BASIC-D-BASIC 15 MM in DEXT 5% WATER 245 ML IV SCH (11:00)
[2020-05-26] MEDS ORDERED: LACTULOSE 20G/30ML UDC PO PRN (13:15)
[2020-05-26] MEDS: TRAMADOL 50MG TABLET PO PRN (13:33)
[2020-05-26] MEDS ORDERED: ENOXAPARIN 40MG/0.4ML SYR SUBCUT SCH (14:00)
[2020-05-26] MEDS ORDERED: AMLODIPINE 10MG TABLET PO SCH (15:30)
[2020-05-26] MEDS ORDERED: INSULIN GLARGINE UD 100 UNITS/ML SYR SUBCUT SCH (22:00)
== END 2020-05-26 17:00 | disposition home or self-care (01) | DRG 816 ==
LOC: ER 17:57 → MICUSO 22:47 → 7WST 23:50 → 8WST 05-24 17:23
PROVIDERS: ADMIT Internal Medicine; ATTEND Internal Medicine
DX: T40.5X1A Poisoning by cocaine, accidental (unintentional), initial encounter (principal); N17.0 Acute kidney failure with tubular necrosis; J96.00 Acute respiratory failure, unspecified whether with hypoxia or hypercapnia; J44.0 Chronic obstructive pulmonary disease with (acute) lower respiratory infection; J18.9 Pneumonia, unspecified organism; E87.8 Other disorders of electrolyte and fluid balance, not elsewhere classified; E87.1 Hypo-osmolality and hyponatremia; E44.0 Moderate protein-calorie malnutrition; E11.65 Type 2 diabetes mellitus with hyperglycemia; D72.821 Monocytosis (symptomatic); Y92.89 Other specified places as the place of occurrence of the external cause; D64.9 Anemia, unspecified; I10 Essential (primary) hypertension; J98.11 Atelectasis; Z96.649 Presence of unspecified artificial hip joint; Z20.828 Contact with and (suspected) exposure to other viral communicable diseases; F15.90 Other stimulant use, unspecified, uncomplicated; J68.0 Bronchitis and pneumonitis due to chemicals, gases, fumes and vapors; E66.01 Morbid (severe) obesity due to excess calories; L89.893 Pressure ulcer of other site, stage 3; F14.10 Cocaine abuse, uncomplicated; I95.9 Hypotension, unspecified; R26.2 Difficulty in walking, not elsewhere classified; Z82.49 Family history of ischemic heart disease and other diseases of the circulatory system; Z99.3 Dependence on wheelchair; Z68.42 Body mass index [BMI] 45.0-49.9, adult; Z71.3 Dietary counseling and surveillance
CPT/HCPCS: 36415; 71045; 76770; 78580; 80048; 80053; 80061; 80305; 81003; 82040; 82533; 82550; 82962; 83036; 83605; 83735; 83880; 83935; 84100; 84134; 84300; 84439; 84443; 84481; 84484; 85025; 85379; 87426; 93005; 93970; 94640; 96365; 97162; 99285; J0456; J0696; J1650; J1815; J3490; J7030; J7060; J7626

== ENCOUNTER 2020-07-13 14:35 | Emergency (ER) | payer MEDICAID ==
[~2020-07-13] VITALS: Ht 165.1 cm; Wt 113.0 kg
[2020-07-13] MEDS ORDERED: HYDROCODONE/ACETAMINOPHEN 5/325MG TABLET PO ONE (17:45)
[2020-07-13 18:22] LABS: BASOPHILS % 0.9 % (0.0-2.0); EOSINOPHILS % 8.3 % (0.0-5.0); HEMATOCRIT. 37.8 % (42.0-52.0); HEMOGLOBIN. 12.9 g/dL (14.0-18.0); LYMPHOCYTES % 25.4 % (20.0-50.0); MEAN CORPUSCULAR HEMOGLOBIN 31.5 pg (28.0-32.0); MEAN CORPUSCULAR VOLUME 92.1 fL (80.0-94.0); MEAN PLATELET VOLUME 8.1 fl (7.4-10.4); MONOCYTES % 10.7 % (2.0-8.0); NEUTROPHILS % 54.7 % (40.0-76.0); PLATELET 309 x1000/uL (130-400); RED BLOOD CELL COUNT 4.11 mill/uL (4.7-6.1); RED CELL DISTRIBUTION WIDTH 13.4 % (11.6-14.6)
[2020-07-13 18:29] LABS: CHLORIDE 97 mEq/L (98-107)
[2020-07-13 18:34] LABS: CLARITY URINE TURBID (CLEAR); COLOR URINE YELLOW (YELLOW); KETONES URINE NEGATIVE (NEGATIVE); LEUKOCYTE ESTERASE URINE 2+ (NEGATIVE); NITRITE URINE NEGATIVE (NEGATIVE); OCCULT BLOOD URINE NEGATIVE (NEGATIVE); PH URINE 8.5 (4.5-8.0); PROTEIN URINE 2+ (NEGATIVE); SPECIFIC GRAVITY URINE 1.034 (1.005-1.030)
[2020-07-13 21:29] VITALS: BP 140/81
== END 2020-07-13 22:38 | disposition home or self-care (01) ==
LOC: ER 14:46
DX: E11.65 Type 2 diabetes mellitus with hyperglycemia (principal); N39.0 Urinary tract infection, site not specified; J44.9 Chronic obstructive pulmonary disease, unspecified; I10 Essential (primary) hypertension; Z79.4 Long term (current) use of insulin
CPT/HCPCS: 36415; 80053; 81003; 85025; 93005; 99284

== ENCOUNTER 2020-07-14 12:10 | Emergency (ER) | payer MEDICAID ==
[~2020-07-14] VITALS: Ht 177.8 cm; Wt 118.0 kg
[2020-07-14] MEDS ORDERED: KETOROLAC 30MG/ML VIAL IV STA (12:40)
[2020-07-14] MEDS ORDERED: SODIUM CHLORIDE 0.9% 1,000 ML IV ONE (12:45)
[2020-07-14 13:33] LABS: BG BASE EXCESS 2.5 mmol/L (-2.0-2.0); BG CARBOXYHEMOGLOBIN 3.2 % (0.5-1.5); BG DEOXYHEMOGLOBIN 4.5 % (0.0-5.0); BG HCO3 ACT 27.7 mmol/L (22.0-26.0); BG METHEMOGLOBIN 0.3 % (0.0-1.5); BG OXYGEN SATURATION 95.3 % (92.0-98.5); BG PCO2 45.3 mmHg (35.0-45.0); BG PH 7.405 (7.350-7.450); BG PO2 74.1 mmHg (75.0-100.0); BG SAMPLE SITE LEFT RADIAL; BG TOTAL HEMOGLOBIN 13.6 g/dL (12.0-18.0); BG VENT MODE ROOM AIR
[2020-07-14 13:50] LABS: BASOPHILS % 0.6 % (0.0-2.0); EOSINOPHILS % 6.2 % (0.0-5.0); HEMATOCRIT. 42.4 % (42.0-52.0); HEMOGLOBIN. 14.4 g/dL (14.0-18.0); LYMPHOCYTES % 16.5 % (20.0-50.0); MEAN CORPUSCULAR HEMOGLOBIN 31.5 pg (28.0-32.0); MEAN CORPUSCULAR VOLUME 92.4 fL (80.0-94.0); MONOCYTES % 9.6 % (2.0-8.0); NEUTROPHILS % 67.1 % (40.0-76.0); PLATELET 302 x1000/uL (130-400); RED BLOOD CELL COUNT 4.58 mill/uL (4.7-6.1); RED CELL DISTRIBUTION WIDTH 13.4 % (11.6-14.6)
[2020-07-14 13:59] LABS: CHLORIDE 99 mEq/L (98-107)
[2020-07-14 14:06] LABS: BETA HYDROXYBUTYRATE 0.1 mMol/L (0.0-0.3)
[2020-07-14 14:50] VITALS: BP 150/78
== END 2020-07-14 14:52 | disposition home or self-care (01) ==
LOC: ER 12:10
DX: M54.9 Dorsalgia, unspecified (principal); Z76.0 Encounter for issue of repeat prescription; J44.9 Chronic obstructive pulmonary disease, unspecified; E11.9 Type 2 diabetes mellitus without complications; I10 Essential (primary) hypertension; Z79.4 Long term (current) use of insulin; Z20.828 Contact with and (suspected) exposure to other viral communicable diseases
CPT/HCPCS: 36415; 36600; 71045; 80053; 82010; 82375; 82805; 85025; 85610; 87635; 96374; 99284; J1885; J7030